=== PATIENT | male | born 1955 | race Caucasian/White ===

== ENCOUNTER → 2017-07-27 20:07 | Outpatient (CLI) | payer MEDICAID, SELFPAY | PROVIDERS: Family Provider Family Medicine; PCP Family Medicine; Visit Provider Family Medicine | DX: G47.33 Obstructive sleep apnea (adult) (pediatric) (principal) | CPT/HCPCS: 95810 ==

== ENCOUNTER → 2017-09-23 08:20 | Outpatient (CLI) | payer MEDICAID, SELFPAY ==
--- NOTE | 2017-09-23 08:25 | STE_ITS ---
Reason For Study: ABN. EKG Stress Results Protocol: Ricardo Protocol Maximum Predicted HR: 160 bpm Target HR: 136 bpm% Max imum Predicted HR: 85 % DurationHeart Rate Stage (mm:ss) (bpm) BPDos eComment BASELINE 56 143/82 0.2 ML DEFINITY STAGE 1 3:40 60 121/6610.00 STAGE 2 3:00 10 9 168/8220.00 STAGE 3 3:38 13 6 170/9630.000.2 ML DEFINITY REC OVERY 80 126/63 0.1 ML DEFINITY Stress Duration: 10:18 mm:ss Maximum Stress HR: 136 bpm Baseline Echocardiogram Findings The estimated ejection fraction is 65 %. Stress Echo Wall motion Data Resting WMIntermediate WMStress WM Resting Wall Motion Wall Motion Stress No regional wall motion No regional wall motion abnormalities noted. abnormalities noted. EKG Data Normal intervals are noted. The patient was titrated from 10 mcg to a maximun of 30 mcg of dobutamine during the stress. The maximum heart rate attained was 136 beats per minute. This was 85% of maximum predicted heart rate. During dobutamine infusion, there were no ST or T wave changes noted to suggest ischemia. No clinical angina was noted. Interpretation Summary The study was technically difficult. Contrast injection was performed. The estimated ejection fraction is 65 %. The patient was titrated from 10 mcg to a maximun of 30 mcg of dobutamine during the stress. Normal, adequate, dobutamine echocardiogram. Negative for ischemia by EKG and echocardiographic criteria. No anginal symptoms noted. Rare PAC noted. Rare PVC noted. Appropriate blood pressure response to dobutamine. Decreased sensitivity due to poor echo windows requiring Definity enhancement agent. Final LVEF of 75%. Decreased sensitivity due to baseline left bundle branch pattern. Recommend clinical correlation or alternative mode of testing if coronary ischemia is strongly suspected. Ordering Physician: Hunter Hameed Referring Physician: Hunter Hameed Performed By: Nuvia Keller RDCS, RVT
== END ==
PROVIDERS: Family Provider Family Medicine; PCP Family Medicine; Visit Provider Family Medicine
DX: I49.3 Ventricular premature depolarization (principal); R94.31 Abnormal electrocardiogram [ECG] [EKG]
CPT/HCPCS: 93017; 93350; Q9957; A4216; C8928

== ENCOUNTER 2017-11-23 07:15 | Day surgery (SDC) | payer MEDICAID, SELFPAY ==
[2017-11-20 09:09] VITALS: BMI 37.4
--- NOTE | 2017-11-25 07:19 | CL.IE_ITS ---
Patient: PHILIPPE SADLER Study Date: 11/23/2017 Performing: Shilo Kennedy MD : 1955 Age: 62 Gender: male PROCEDURES PERFORMED [id number] OF LOOP RECORDER INDICATIONS Syncope PROCEDURE DETAILS The patient was brought to the Catheterization Lab in the postabsorptive nonsedated state. Informed consent was obtained prior to the procedure. Local anesthetic was given subcutaneously to the left up per chest area with Lidocaine 2%. Incision was made to the left upper chest. ICM Reveal LINQ was inse rted into the pocket. Steri-strips applied to Lt chest area. The patient tolerated the procedure wel l. Estimated Blood Loss: 3 ml's IMPLANTED / EX-PLANTED DEVICES IMPLANTED DEVICE(S): ICM Reveal LINQ - Quirk Sander: [employer], Model # [id number] Serial # [id number] DEVICE PARAMETERS CONCLUSIONS / RECOMMENDATIONS Device Conclusions: Successful implantation of a patient activated loop recorder. Device Recommendations: Follow up with Primary Care Physician PROCEDURE MEDICATIONS Versed 1 mg IV Oxygen: 2 L/min via nasal cannula Antibiotic given in appropriate timeframe. Ancef 1 Gm IV @ 11/23/2017 08:21:39 Signed By Shilo Kennedy MD On 11/25/2017 07:18:42 Shilo Kennedy MD
== END 2017-11-23 09:52 | disposition home or self-care (01) ==
LOC: CLSP 07:16
PROVIDERS: Family Provider Family Medicine; PCP Family Medicine; Visit Provider Internal Medicine Cardiovascular Disease
DX: R55 Syncope and collapse (principal); I49.3 Ventricular premature depolarization; I44.7 Left bundle-branch block, unspecified; J44.9 Chronic obstructive pulmonary disease, unspecified; I10 Essential (primary) hypertension; E78.5 Hyperlipidemia, unspecified; R73.03 Prediabetes; M19.90 Unspecified osteoarthritis, unspecified site; G47.33 Obstructive sleep apnea (adult) (pediatric); F41.9 Anxiety disorder, unspecified; E66.9 Obesity, unspecified; F17.210 Nicotine dependence, cigarettes, uncomplicated; Z79.82 Long term (current) use of aspirin; Z79.899 Other long term (current) drug therapy; Z86.73 Personal history of transient ischemic attack (TIA), and cerebral infarction without residual deficits
CPT/HCPCS: 33282; 99152; J7040

== ENCOUNTER 2017-12-15 13:27 | Emergency (ER) | payer MEDICAID, SELFPAY ==
[2017-12-15 13:27] VITALS: BP 148/67; PULSE 79; RESP 16; TEMP 36.9; O2SAT 97; BMI 37.9
--- NOTE | 2017-12-15 14:38 | ED.VISSUMM ---
- ER Visit Summary Date of Service: 12/15/17 Chief Complaint: Left knee pain History of Present Illness: The patient is a [address] Hameed. He reports that he fell approximately 3 months ago and has had left knee pain since that time. He saw his primary care physician and had x-rays that are negative. The hope was that this would improve with time. Patient reports it is not getting any better. He has a sharp pain that is 2 out of 10 at rest and 8 out of 10 with walking. He reports the pain is worsened when standing from a chair or going up stairs. Physical Examination: Vitals: Stable. Afebrile. General: Well-nourished and well-developed. Head: Normocephalic atraumatic. Neck: Supple, no lymphadenopathy. No JVD. Nontender. Cardiovascular: Regular rate and rhythm. No murmurs. Respiratory: No respiratory distress. Clear to auscultation bilaterally. Abdominal: Soft, nontender, nondistended, normal bowel sounds. No guarding, rebound, or peritoneal signs. Back: Nontender. Extremities: Mild tenderness palpation over the medial side of his left knee. No pain or ligamentous instability with anterior posterior drawer or medial lateral stress. He does have a positive Pete with his foot rotated medially. Is a 2+ dorsalis pedis pulse Skin: Normal color, no rash. Neurologic: Alert and oriented ?3. Cranial nerves II through XII are intact. Normal strength and sensation. Psych: Normal affect. Emergency Department Course and Treatment: Had a prolonged discussion the patient that this could be meniscal in origin. It does not seem as though he has an unstable knee. An OARRS report was obtained which was negative. Treatment Plan: Patient will be discharged with Percocet and Colace. Instructed to follow-up with Dr. Spencer within a week for further evaluation. Return to the emergency department for any worsening symptoms. Disposition: To home in improved and stable condition. Impression: 1. Left knee pain, chronic. This note was generated with [employer] dictation software. It may contain incorrect words, spelling, and punctuation that were not noted in review of the chart prior to signing ED Disposition - Plan for ED Patient: Disposition: Home or Assisted Living Chief Complaint: Lower Extremity Injury Instructions: ED Meniscal Injury Knee Poss Prescriptions: Oxycodone HCl/Acetaminophen [Percocet 5/325] 1 tablet PO Q6H PRN PRN 3 Days #12 tablet PRN Reason: Pain Docusate Sodium [Colace] 100 mg PO DAILY #20 capsule Referrals: Myah Spencer DO [STAFF PHYSICIAN] - 1 Week
== END 2017-12-15 14:59 | disposition home or self-care (01) ==
PROVIDERS: Emergency Provider Emergency Medicine; Family Provider Family Medicine; PCP Family Medicine
DX: M25.562 Pain in left knee (principal); G89.29 Other chronic pain; Z72.0 Tobacco use; Z79.82 Long term (current) use of aspirin; Z79.899 Other long term (current) drug therapy; Z86.73 Personal history of transient ischemic attack (TIA), and cerebral infarction without residual deficits
CPT/HCPCS: 99282

== ENCOUNTER → 2017-12-22 09:19 | Outpatient (CLI) | payer MEDICAID, SELFPAY | PROVIDERS: Family Provider Family Medicine; PCP Family Medicine; Visit Provider Orthopaedic Surgery | DX: M25.562 Pain in left knee (principal) | CPT/HCPCS: 73564 ==

== ENCOUNTER → 2018-01-05 15:25 | Outpatient (CLI) | payer MEDICAID, SELFPAY ==
--- NOTE | 2018-01-05 15:28 | MRI_ITS ---
STUDY: MRI LEFT KNEE REASON FOR EXAM: Medial pain, fall 6-8 weeks ago. TECHNIQUE: Standardized fat and water weighted pulse sequences were obtained in all 3 orthogonal planes. COMPARISON: Radiographs 12/22/2017. FINDINGS: Normal medial meniscus. Normal hyaline cartilage of the medial femorotibial compartment. There is a small bone contusion of the medial femoral condyle near the origin of the medial collateral ligament (T2 axial image 13). There is a mild sprain of the proximal medial collateral ligament (T2 coronal image 17) and calcification in the proximal medial collateral ligament from remote injury (proton-density coronal image 18). Normal distal semimembranosus, gracilis and semitendinosus tendons. Normal lateral meniscus. Normal hyaline cartilage of the lateral femorotibial compartment. Normal lateral femoral condyle and tibial plateau. Normal proximal tibiofibular articulation. Normal lateral collateral (fibular) ligament. Normal popliteus tendon. Normal biceps femoris tendon. Normal anterior cruciate ligament (ACL). Normal posterior cruciate ligament (PCL). Normal congruent patellofemoral articulation. Normal hyaline cartilage of the patellofemoral compartment. Normal medial and lateral patellar retinaculum. Normal quadriceps tendon. There is an enthesophyte at the superior pole of the patella. Normal patellar tendon. Normal Hoffa's fat pad. There is no joint effusion. There is a small popliteal cyst (T2 sagittal images 4-7). The otherwise visualized osseous structures are unremarkable. MRI/Lower Ext Joint Only (Routine) IMPRESSION: Mild medial collateral ligament sprain. Small bone contusion of the medial femoral condyle. Small popliteal cyst. No demonstrated medial meniscal tear. Electronically Signed: Lance Avila MD at 7:39 EDT Tel , Service support ,
== END ==
PROVIDERS: Family Provider Family Medicine; PCP Family Medicine; Visit Provider Orthopaedic Surgery
DX: S83.242A Other tear of medial meniscus, current injury, left knee, initial encounter (principal); S83.412A Sprain of medial collateral ligament of left knee, initial encounter; X58.XXXA Exposure to other specified factors, initial encounter; Y93.9 Activity, unspecified; Y92.9 Unspecified place or not applicable; Y99.9 Unspecified external cause status
CPT/HCPCS: 73721

== ENCOUNTER 2018-01-08 09:59 | Day surgery (SDC) | payer MEDICAID, SELFPAY ==
[2018-01-08] VITALS (13 sets, daily range): BP systolic 137–161; BP diastolic 66–95; PULSE 60–71; RESP 16–18; TEMP 36.4–36.7; O2SAT 93–96; BMI 37.9
[2018-01-08] MEDS: Cefazolin 2 GM in 0.9% Normal Saline 100 ML IV (12:52)
--- NOTE | 2018-01-08 14:18 | CL.IE_ITS ---
Patient: PHILIPPE SADLER Study Date: 01/08/2018 Performing: Shilo Kennedy MD : 1955 Age: 62 Gender: male PROCEDURES PERFORMED [id number] PACER INSERT+DUAL LEADS INDICATIONS Atrioventricular (AV) block PROCEDURE DETAILS The patient was brought to the Catheterization Lab in the postabsorptive nonsedated state. Informed consent was obtained prior to the procedure. Local anesthetic was given subcutaneously to the left up per chest area with Lidocaine 2%. Incision was made to the left upper chest. Access was achieved and a guidewire was advanced into the left subclavian vein. PPM ventricular lead was inserted / positione d to right ventricular apex. PPM ventricular lead testing performed. PPM ventricular lead testing per formed. The sheath was then removed. PPM atrial lead was inserted / positioned to the right atrial ap pendage. PPM atrial lead testing performed. The sheath was then removed. The Ventricular PM lead sutu red in place with 3-0 Silk. The Atrial lead sutured in place with 3-0 Silk. Device pocket was irrigat ed with antibiotic (Ancef). PPM generator was attached to the lead(s) and inserted into the pocket. S ubcutaneous closure was completed with 3-0 Vicryl. Skin closure was completed with 4-0 Vicryl. The p atient tolerated the procedure well. Estimated Blood Loss: 10 ml's IMPLANTED / EX-PLANTED DEVICES IMPLANTED DEVICE(S): PPM Ventricular lead - [employer]: [employer], Model # Ingevity MRI 7741 , Serial # [id number] PPM Atrial lead - [employer]: [employer], Model # Ingevity MRI 7740 , Serial # [id number] PPM Generator - [employer]: [employer], Model # Essentio MRI L111 , Serial # [id number] DEVICE PARAMETERS ATRIAL LEAD PARAMETERS: P wave- 6.6 (mV) Current- 1.1 (mA) threshold- 0.7 (V) impedence- 674 (OHMS) VENTRICULAR LEAD PARAMETERS: R wave- 12.6 (mV) Current- 0.4 (mA) threshold- 0.4 (V) impedence- 1022 (OHMS) DEVICE PARAMETERS: Mode- DDD Lower rate- 60 Upper rate- 140 CONCLUSIONS / RECOMMENDATIONS Device Conclusions: Successful implantation of a dual chamber pacemaker Device Recommendations: Follow up with Primary Care Physician PROCEDURE MEDICATIONS Versed 1 mg IV Fentanyl 50 mcg IV Versed 1 mg IV Fentanyl 25 mcg IV Oxygen: 2 L/min via nasal cannula Antibiotic given in appropriate timeframe. Ancef 2 Gm IV @ 01/08/2018 12:52:31 Signed By Shilo Kennedy MD On 01/08/2018 14:17:42 Shilo Kennedy MD
[2018-01-08] MEDS: Atorvastatin Calcium 40 MG Tablet PO (21:32)
[2018-01-08] MEDS: Acetaminophen 325 MG Tablet 650 MG PO (22:59)
[2018-01-09 03:14] VITALS: PULSE 60
[2018-01-09 03:30] VITALS: BP 131/78; PULSE 60; RESP 18; TEMP 36.7; O2SAT 95
--- NOTE | 2018-01-09 04:40 | RAD_ITS ---
STUDY: X-RAY CHEST REASON FOR EXAM: Male, 62 years old. Pacemaker placement TECHNIQUE: AP and lateral views of the chest. COMPARISON: 06/12/2016 FINDINGS: Interval placement of dual-lead pacer via left subclavian approach with catheter tip over the right atrium and right ventricle. There are superimposed monitor leads. There is no demonstrated pneumothorax. There is no demonstrated pleural abnormality. Normal size heart. Normal mediastinum and corinna. Normal visualized pulmonary arteries. There is atherosclerotic calcification of the aortic arch with tortuosity. There are diffuse degenerative changes of the visualized thoracic spine. Normal visualized ribs, clavicles, and shoulders. There is no demonstrated abnormality of the visualized soft tissue structures of the upper abdomen. RAD/Chest PA and Lateral IMPRESSION: Pacemaker placement appears in good position. There is no demonstrated pneumothorax. Electronically Signed: Katie Mckeon MD at 6:41 EDT , Service support ,
[2018-01-09 06:59] VITALS: PULSE 60
[2018-01-09] MEDS: Aspirin E.C. 81 MG Tablet PO (08:48)
[2018-01-09 10:12] VITALS: BP 154/80; PULSE 60; RESP 20; TEMP 36.8; O2SAT 95
--- NOTE | 2018-01-09 10:58 | PCM.PN.CARD ---
Subjectve: Patient seen and evaluated Objective: Vital Signs Temp Pulse Resp BP Pulse Ox 98.3 F 60 20 H 154/80 H 95 01/09/18 10:12 01/09/18 10:12 01/09/18 10:12 01/09/18 10:12 01/09/18 10:12 Oxygen Delivery Method Room Air Weight: 235 lb Body Mass Index (BMI) 37.9 Finger Stick Blood Glucose 84 Intake and Output for Last 24 Hours 01/07/18 01/08/18 01/09/18 23:59 23:59 23:59 Intake Total 720 / 720 120 / 120 Output Total 450 / 450 Balance 270 / 270 120 / 120 General: Awake, Alert, Oriented x 3 HEENT: PERRL, EOMI, Sclera Non Icteric Neck: Supple, Good ROM, No Lymph Node Enlargement Lungs: Clear to auscultation Cardiovascular: Regular Rhythm, Normal S1, Normal S2, No Murmurs, No Rubs, No Gallops Vascular: No Carotid Bruits, Normal Femoral Pulses, Normal Radial Pulses, Normal Dorsalis Pedal Pulse, Normal Posterior Tibial Pulses Abdomen: Bowel Sounds Present, Soft, Non Tender, No HSM, No Organomegaly Extremities: No Cyanosis, No Clubbing, No edema Neurological: No Focal Motor or Sensory Deficit Rhythm: EKG: ECHO: Stress Test: Cardiac Cath: PCI: CT Surgery: Holter monitor: EPS: PPM: CXR: Chest CT Scan: Medical Necessity - Tobacco Use Smoking Status: Current some day smoker Assessment/Plan 1. Status post pacemaker implantation Patient underwent permanent pacemaker implantation with a dual-chamber without any apparent complications. Pacemaker check did not reveal any significant abnormalities. Plan will be to discharge patient and follow him up as an outpatient.
[2018-01-09 10:59] VITALS: PULSE 60
--- NOTE | 2018-01-09 11:02 | PCM.DC.PACE ---
Discharge Diet: No Restrictions Discharge Activity: May Not Drive May resume sexual activity in: 2 weeks Call your doctor if your incision/area has: Continuous Slow Oozing, Sudden Increased Bleeding, Increased Pain/ Swelling, Increased Redness, Foul Smelling Discharge, Swelling at the incision site Call your doctor if you observe: Fever of 101 or Higher, Shortness of breath, Dizziness, Fainting spells, Swelling in the ankles, Chest pain, Prolonged hiccoughing, Increased palpitations (irregular heartbeat) Change Dressing in (Days):: 3 Remove Dressing in (days):: 3 Cleanse incision/area with: Do not get Incision Wet, Keep Dressing Clean & Dry Additional Dressing/Incision Instructions:: When dressing is removed, wash and dry incision. Keep covered with a light bandage if it is rubbing against your clothing. Do not cover the incision with an airtight bandage. Change the bandage daily. Do not remove steri strips. The strips will fall off on their own. Additional Instructions: Signs and Symptoms to Report to Your Doctor at Once - call your doctor's office or Doctor's Registry ([phone]) Call 911 or go to the nearest Emergency Department if you feel you need urgent care. *Infection (fever, increased redness or swelling at the incision site, drainage from the incision increased pain at the pacemaker site) *Shortness of breath *Dizziness *Fainting spells *Swelling in the ankles *Chest pain *Prolonged hiccoughing *Increased palpitaitons (irregular heartbeat) Medications: Take your pain medication as directed. Refer to your discharge instruction sheet for a list of medications you are to take. Allergies/Adverse Reactions: Allergies codeine Adverse Reaction (Verified 12/15/17 13:29) Nausea latex Adverse Reaction (Verified 12/15/17 13:29) Rash Medications to take at Discharge Aspirin 81 mg PO QODAY 11/20/17 Ventolin Hfa 2 puff PO Q2H PRN PRN 11/20/17 Atorvastatin Calcium [Lipitor] 40 mg PO QHS 01/08/18 Primary Care Physician: Hunter Hameed MD [Primary Care Provider] - Test Results: Test results from this visit will be discussed in further detail at your follow-up appointment, if applicable. Please Follow Up With: [facility] 01/15 at 10 am
--- NOTE | 2018-01-09 11:05 | DCINST_ITS ---
Discharge Diet: No Restrictions Discharge Activity: May Not Drive May resume sexual activity in: 2 weeks Call your doctor if your incision/area has: Continuous Slow Oozing, Sudden Increased Bleeding, Increased Pain/ Swelling, Increased Redness, Foul Smelling Discharge, Swelling at the incision site Call your doctor if you observe: Fever of 101 or Higher, Shortness of breath, Dizziness, Fainting spells, Swelling in the ankles, Chest pain, Prolonged hiccoughing, Increased palpitations (irregular heartbeat) Change Dressing in (Days):: 3 Remove Dressing in (days):: 3 Cleanse incision/area with: Do not get Incision Wet, Keep Dressing Clean & Dry Additional Dressing/Incision Instructions:: When dressing is removed, wash and dry incision. Keep covered with a light bandage if it is rubbing against your clothing. Do not cover the incision with an airtight bandage. Change the bandage daily. Do not remove steri strips. The strips will fall off on their own. Additional Instructions: Signs and Symptoms to Report to Your Doctor at Once - call your doctor's office or Doctor's Registry ([phone]) Call 911 or go to the nearest Emergency Department if you feel you need urgent care. *Infection (fever, increased redness or swelling at the incision site, drainage from the incision increased pain at the pacemaker site) *Shortness of breath *Dizziness *Fainting spells *Swelling in the ankles *Chest pain *Prolonged hiccoughing *Increased palpitaitons (irregular heartbeat) Medications: Take your pain medication as directed. Refer to your discharge instruction sheet for a list of medications you are to take. Allergies/Adverse Reactions: Allergies codeine Adverse Reaction (Verified 12/15/17 13:29) Nausea latex Adverse Reaction (Verified 12/15/17 13:29) Rash Medications to take at Discharge Aspirin 81 mg PO QODAY 11/20/17 Ventolin Hfa 2 puff PO Q2H PRN PRN 11/20/17 Atorvastatin Calcium [Lipitor] 40 mg PO QHS 01/08/18 Primary Care Physician: Hunter Hameed MD [Primary Care Provider] - Test Results: Test results from this visit will be discussed in further detail at your follow- up appointment, if applicable. Please Follow Up With: [facility] 01/15 at 10 am
== END 2018-01-09 11:04 | disposition home or self-care (01) ==
LOC: CLSP 10:00 → PCU 14:35
PROVIDERS: Family Provider Family Medicine; PCP Family Medicine; Visit Provider Internal Medicine Cardiovascular Disease
DX: R55 Syncope and collapse (principal); I44.7 Left bundle-branch block, unspecified; R00.2 Palpitations; I10 Essential (primary) hypertension; E78.5 Hyperlipidemia, unspecified; G47.33 Obstructive sleep apnea (adult) (pediatric); E66.9 Obesity, unspecified; Z79.82 Long term (current) use of aspirin; Z79.899 Other long term (current) drug therapy; F17.200 Nicotine dependence, unspecified, uncomplicated
CPT/HCPCS: 33208; 71046; 99152; 99153; J7040; J7050; C1894

== ENCOUNTER 2018-03-01 06:54 | Day surgery (SDC) | payer MEDICAID, SELFPAY ==
--- NOTE | 2018-03-04 10:50 | CL.IE_ITS ---
Patient: PHILIPPE SADLER Study Date: 03/01/2018 Performing: Shilo Kennedy MD : 1955 Age: 62 Gender: male PROCEDURES PERFORMED [id number] OF LOOP RECORDER INDICATIONS Removal of Loop device PROCEDURE DETAILS The patient was brought to the Catheterization Lab in the postabsorptive nonsedated state. Infor med consent was obtained prior to the procedure. Local anesthetic was given subcutaneously to the lef t upper chest area with Lidocaine 2%. Incision was made to the left upper chest. ICM Reveal LINQ was removed. Skin closure was completed with 4-0 Vicryl. Steri-strips applied to Lt chest area. The maría ent tolerated the procedure well. Estimated Blood Loss: < 10 mls IMPLANTED / EX-PLANTED DEVICES DEVICE PARAMETERS CONCLUSIONS / RECOMMENDATIONS Device Conclusions: Successful removal of a patient activated loop recorder. Device Recommendations: Follow up with Primary Care Physician PROCEDURE MEDICATIONS Versed 1 mg IV Oxygen: 2 L/min via nasal cannula Antibiotic given in appropriate timeframe. Ancef 2 Gm IV @ 03/01/2018 09:01:22 Signed By Shilo Knenedy MD On 03/04/2018 10:49:38 Shilo Kennedy MD
== END 2018-03-01 10:25 | disposition home or self-care (01) ==
LOC: CLSP 06:54
PROVIDERS: Family Provider Family Medicine; PCP Family Medicine; Referring Provider Internal Medicine Cardiovascular Disease; Visit Provider Internal Medicine Cardiovascular Disease
DX: I49.5 Sick sinus syndrome (principal); I44.39 Other atrioventricular block; I44.7 Left bundle-branch block, unspecified; I49.3 Ventricular premature depolarization; R55 Syncope and collapse; I25.10 Atherosclerotic heart disease of native coronary artery without angina pectoris; J44.9 Chronic obstructive pulmonary disease, unspecified; I10 Essential (primary) hypertension; E78.5 Hyperlipidemia, unspecified; M19.011 Primary osteoarthritis, right shoulder; R73.03 Prediabetes; F41.9 Anxiety disorder, unspecified; E66.9 Obesity, unspecified; F17.210 Nicotine dependence, cigarettes, uncomplicated; Z79.82 Long term (current) use of aspirin; Z79.899 Other long term (current) drug therapy; Z86.73 Personal history of transient ischemic attack (TIA), and cerebral infarction without residual deficits; Z95.0 Presence of cardiac pacemaker
CPT/HCPCS: 33284; 99152; 99153; J7040

== ENCOUNTER → 2018-10-01 13:57 | Outpatient (CLI) | payer MEDICARE, MEDICAID, SELFPAY ==
[2018-09-01 11:15] VITALS: BMI 40.5
--- NOTE | 2018-10-01 14:00 | ECHOD_ITS ---
Reason For Study: AORTIC STENOSIS (nonrheumatic) Procedure This was a 2D Doppler, Color Flow transthoracic echocardiogram. Exam performed in department. Left Ventricle Normal size and thickness. Left ventricular systolic function is normal. The estimated ejection fraction is 50-55 %. Normal diastology for age. Mild anteroseptal hypokinesis. Right Ventricle Normal RV size. Normal systolic function. Atria Normal left atrium. Normal right atrium. No doppler evidence for ASD. Mitral Valve There is no mitral valve stenosis. No mitral valve insufficiency. Tricuspid Valve There is no tricuspid stenosis. Trivial tricuspid valve insufficiency. Unable to estimate RV systolic pressure due to insufficient tricuspid regurgitant envelope. Aortic Valve Trisinus/trileaflet aortic valve. Mild diffuse aortic valve thickening. Mild aortic stenosis. No aortic valve insufficiency. Pulmonic Valve There is no pulmonic valvular stenosis. No pulmonic valve insufficiency. Great Vessels Normal aortic root. Pericardium/Pleural No pericardial effusion. MMode/2D Measurements & Calculations LVIDd: 4.9 cm IVSd: 1.1 cm LVOT diam: 2.1 cm LVIDs: 4.0 cm LVPWd: 1.1 cm LVOT area: 3.5 cm2 RVDd: 3.9 cm FS: 18.1 % Ao root diam: 3.6 cm LAV(MOD-bp): 51.7 ml LA A4 area: 18.0 cm2 LAV(MOD-bp) Indexed: 24.0 ml/m2 LAV(MOD-sp2): 51.3 ml LAV(MOD-sp4): 51.1 ml LA dimension(2D): 3.1 cm RA A4 area: 14.8 cm2 Time Measurements MV dec time: 0.24 sec Doppler Measurements & Calculations MV E max mahesh: 74.1 cm/sec Lat Peak E' Mahesh: 9.1 cm/sec Med Peak E' Mahesh: 5.3 cm/sec MV A max mahesh: 98.9 cm/sec E/E' lat: 8.1 E/E' med: 13.9 MV E/A: 0.75 Ao V2 max: 199.3 cm/sec LV V1 max: 131.9 cm/sec SV(LVOT): 86.1 ml Ao max P.9 mmHg LV V1 max P.0 mmHg Ao V2 mean: 142.6 cm/sec LV V1 mean P.0 mmHg Ao mean P.8 mmHg LV V1 mean: 96.5 cm/sec Ao V2 VTI: 37.2 cm LV V1 VTI: 24.5 cm ALFREDITO(I,D): 2.3 cm2 ALFREDITO(V,D): 2.3 cm2 PA V2 max: 149.7 cm/sec TR max mahesh: 206.6 cm/sec PA V2 mean: 94.2 cm/sec TR max P.1 mmHg PA V2 VTI: 25.0 cm Interpretation Summary Left ventricular systolic function is normal. The estimated ejection fraction is 50-55 %. Normal diastology for age. Mild diffuse aortic valve thickening. Mild aortic stenosis. Mild anteroseptal hypokinesis Ordering Physician: Devi Pal Referring Physician: Ambrose Hameed Performed By: Maritza Mckinney, SMILEY, RVT
== END ==
PROVIDERS: Family Provider Family Medicine; PCP Family Medicine; Referring Provider Specialist; Visit Provider Specialist
DX: I35.0 Nonrheumatic aortic (valve) stenosis (principal)
CPT/HCPCS: 93306

== ENCOUNTER 2018-10-08 14:17 | Emergency (ER) | payer MEDICARE, MEDICAID, SELFPAY ==
[2018-09-01 11:15] VITALS: BMI 40.5
[2018-10-08 14:19] VITALS: BP 157/79; PULSE 95; RESP 17; TEMP 36.9; O2SAT 94; BMI 38.7
[2018-10-08] MEDS: predniSONE 20 MG Tablet 60 MG PO (14:58)
--- NOTE | 2018-10-08 15:02 | RAD_ITS ---
STUDY: X-RAY CHEST REASON FOR EXAM: Male, 63 years old. Difficulty breathing. TECHNIQUE: PA and lateral views of the chest. COMPARISON: Comparison is made with prior study dated January 09, 2018. FINDINGS: The lungs are clear and expanded. There is no demonstrated pleural abnormality. Normal size heart. A left-sided double-lumen pacemaker is seen. Normal mediastinum and corinna. Normal visualized pulmonary arteries. There is atherosclerotic calcification of the aortic arch with tortuosity. There are mild degenerative changes of the visualized thoracic spine. Normal visualized ribs, clavicles, and shoulders. There is no demonstrated abnormality of the visualized soft tissue structures of the upper abdomen. RAD/Chest PA and Lateral IMPRESSION: No acute abnormality is seen. Electronically Signed: Star Sullivan, at 15:34 EDT , Service support ,
--- NOTE | 2018-10-08 15:41 | ED.VISSUMM ---
- ER Visit Summary Date of Service: 10/08/18 Chief Complaint: [Cough and shortness of breath] History of Present Illness: The patient is a 63 M [presents to the emergency department with 2 and half week history of cough and increasing shortness of breath. Patient states that times he is bringing up some brown to yellow sputum. He denies any fevers. Patient occasionally has some mild discomfort in his chest with cough only. He denies recent travel or surgery. He denies any hemoptysis. Patient has had prior history of CVA, hypertension, high cholesterol, COPD, and sick sinus syndrome.] Physical Examination: [HEENT-PERRLA, EOMI. Cranial nerves II through XII grossly intact. TMs clear. Mucous membranes moist. No adenopathy. Cardiovascular-regular rate and rhythm without murmur or ectopy Lungs-good aeration bilaterally. Patient has some coarse rhonchi throughout. Patient has expiratory wheezes throughout. No significant tachypnea or accessory muscle use. Abdomen-normoactive bowel sounds, soft, nontender, no rebound or rigidity, no peritoneal signs. Extremities-intact ?4, normal range of motion, normal pulses, atraumatic] Test Results: [Chest x-ray showed nothing acute.] Emergency Department Course and Treatment: [Given a DuoNeb aerosol and started on prednisone and doxycycline. Treatment Plan: [Patient will be started on doxycycline and prednisone and will dispense an albuterol MDI for home. Patient advised to follow-up with primary care physician in 5 to 7 days. Patient advised to return if increasing shortness of breath or condition should worsen anyway.] Disposition: [Discharged home stable condition] Impression: [COPD exacerbation] This note was generated with [email or web address] dictation software. It may contain incorrect words, spelling, and punctuation that were not noted in review of the chart prior to signing ED Disposition - Plan for ED Patient: Referrals: Hunter Hameed MD [Primary Care Provider] -
--- NOTE | 2018-10-08 15:43 | ED.DEP ---
ED Disposition - Plan for ED Patient: Instructions: ED COPD Flare Prescriptions: Benzonatate [Tessalon Perle] 200 mg PO TID PRN PRN #20 cap PRN Reason: Cough Doxycycline 100 mg PO BID #20 cap Prednisone [Deltasone] 20 mg PO BID #10 tab Referrals: Hunter Hameed MD [Primary Care Provider] - 5-7 Days
[2018-10-08] MEDS: Doxycycline 100 MG CAPSULE PO (15:52)
[2018-10-08 15:53] VITALS: RESP 18
== END 2018-10-08 15:54 | disposition home or self-care (01) ==
PROVIDERS: Emergency Provider Emergency Medicine; Family Provider Family Medicine; PCP Family Medicine
DX: J44.1 Chronic obstructive pulmonary disease with (acute) exacerbation (principal); I49.5 Sick sinus syndrome; I10 Essential (primary) hypertension; E78.00 Pure hypercholesterolemia, unspecified; K21.9 Gastro-esophageal reflux disease without esophagitis; F41.9 Anxiety disorder, unspecified; Z79.82 Long term (current) use of aspirin; Z79.899 Other long term (current) drug therapy; Z87.891 Personal history of nicotine dependence; Z86.73 Personal history of transient ischemic attack (TIA), and cerebral infarction without residual deficits
CPT/HCPCS: 71046; 99283; A4216

== ENCOUNTER 2018-11-15 15:22 | Emergency (ER) | payer MEDICARE, MEDICAID, SELFPAY ==
[2018-11-15 15:23] VITALS: BP 191/70; PULSE 74; RESP 15; TEMP 36.4; O2SAT 96; BMI 38.7
--- NOTE | 2018-11-15 16:56 | RAD_ITS ---
STUDY: X-RAY CHEST REASON FOR EXAM: Male, 63 years old. Chest pain TECHNIQUE: Frontal view of the chest COMPARISON: X-ray chest October 08, 2018 FINDINGS: Left chest pacemaker is present. The lungs are clear. There are no pleural effusions. There is no pneumothorax. The heart is normal in size. The visualized osseous structures are within normal limits. RAD/Chest 1 View IMPRESSION: No acute thoracic pathology. Electronically Signed: Jermaine Kumar, at 17:59 EDT Tel , Service support ,
--- NOTE | 2018-11-15 16:56 | EKG12_ITS ---
Test Reason : WEAKNESS Blood Pressure : / mmHG Vent. Rate : 060 BPM Atrial Rate : 060 BPM P-R Int : 264 ms QRS Dur : 154 ms QT Int : 478 ms P-R-T Axes : 024 -11 174 degrees QTc Int : 478 ms Poor data quality, interpretation may be adversely affected Atrial-paced rhythm with prolonged AV conduction Left bundle branch block Abnormal ECG Confirmed by LEIGH LALA, STEPHAN ([id number]), order editor VALERIE LATIF ([id number]) on 11/17/2018 1:40:11 PM Referred By: ERICA Confirmed By:STEPHAN ABRAHAM MD
--- NOTE | 2018-11-15 16:56 | CT_ITS ---
STUDY: CTA HEAD AND NECK WITH CONTRAST REASON FOR EXAM: Male, 63 years old. Vision changes and weakness RADIATION DOSAGE (If Supplied By Facility): CTDIvol = ( 29.20 ) mGy, DLP = ( 1633.87 ) mGycm TECHNIQUE: CT angiography was performed with a multi-detector CT scanner. Data acquisition was obtained from the skull base through the vertex following intravenous administration of 100mL IV Isovue 370. MIP images were reconstructed from the axial data set. Post-processing of the angiographic images was performed, with multiplanar reformation and 3D reconstruction. Individualized dose optimization techniques were used for this CT. COMPARISON: MRA 06/12/2016 FINDINGS: Intracranial ICA calcifications. Otherwise: Normal bilateral petrous carotid arteries. Normal right cavernous carotid artery with a normal supraclinoid bifurcation. Normal left cavernous carotid artery with a normal supraclinoid bifurcation. Normal right A1 segments of the anterior cerebral artery. Normal left A1 segments of the anterior cerebral artery. Normal intact anterior communicating artery (ACOM). Normal bilateral A2 segments of the anterior cerebral arteries. Normal right M1 and M2 segments of the middle cerebral arteries, with a normal M1 bifurcation. Normal left M1 and M2 segments of the middle cerebral arteries, with a normal M1 bifurcation. Normal right posterior communicating artery (PCOM). Normal left posterior communicating artery (PCOM). Normal bilateral vertebral arteries. Normal basilar artery with a normal basilar bifurcation. The visualized bilateral superior cerebellar (SCA) arteries are normal. Normal bilateral P1, P2 and visualized P3 segments of the posterior cerebral arteries. There is no demonstrated aneurysm of the [place]. AORTIC ARCH: Bovine aortic arch. Normal origins of the brachiocephalic, left common carotid, and left subclavian arteries. RIGHT CAROTID ARTERIES: Normal right common carotid artery (CCA). Postoperative changes at the level of the carotid bulb. Extensive eccentric soft plaque in the carotid bulb extending to the proximal ICA. An associated stenosis of approximately 70% is noted with residual lumen diameter of 2 mm and poststenotic diameter of 6 mm. Normal origin of the right internal carotid (ICA) artery without a hemodynamically significant stenosis. Normal visualized cervical portion of the right internal carotid artery. Normal origin of the right external carotid artery (ECA). LEFT CAROTID ARTERIES: Normal left common carotid artery (CCA). Mild eccentric calcified bulb plaque without underlying stenosis. Normal origin of the left internal carotid (ICA) artery without a hemodynamically significant stenosis. Normal visualized cervical portion of the left internal carotid artery. Normal origin of the left external carotid artery (ECA). VERTEBRAL ARTERIES: Normal bilateral vertebral arteries. CT/CTA Head AND Neck W/ Contrast IMPRESSION: No CTA evidence of significant intracranial arterial pathology. Extensive eccentric soft plaque in the right carotid bulb and proximal ICA with an associated 70% stenosis. Electronically Signed: Bacilio Espinoza MD at 19:07 EDT Tel , Service support ,
--- NOTE | 2018-11-15 16:58 | ED.DCSUM_ITS ---
- ER Visit Summary Date of Service: 11/15/18 Chief Complaint: Mini stroke History of Present Illness: The patient is a 63 M with a possible mini stroke. His symptoms started suddenly at 2:30 PM today when he was driving. Symptoms lasted about 5 to 10 minutes. He felt he was cross eyed. Since then, his symptoms have resolved but he feels tired. He sees occasional black and white floaters in his left eye. Denies any other vision changes. Denies facial droop or speech changes. Denies weakness or numbness. He has a history of stroke and takes aspirin. He had left-sided numbness at that time, but he said the symptoms have resolved. He also reports a history of carotid endarterectomy 2 years ago. Physical Examination: Blood pressure 191/70. Otherwise vitals unremarkable. Alert and oriented. No acute distress. Cranial nerves grossly intact. Normal strength and sensation. NIH stroke scale is 0. Heart regular rate and rhythm. Lungs clear. Skin appears normal. Test Results: EKG, chest x-ray, labs, CT brain and CTA head and neck pending. Emergency Department Course and Treatment: It sounds like the patient had a TIA. He is not currently having any symptoms except for floaters at this time. He will need a stroke work-up and admission. Results are pending. Will monitor. EKG paced at a rate of 60. CBC, BMP, coags, troponin unremarkable. Chest x-ray unremarkable. CT brain unremarkable. CTA of the neck showed a right carotid and proximal ICA 70% stenosis. I am concerned that the patient is having symptoms of a stroke. I recommended admission. I suggested a facility with vascular surgery. Patient is known to Dr. Scott. Patient says he cannot be admitted tonight he has to take care of personal issues. Patient will be discharged AGAINST MEDICAL ADVICE. He was given a copy of his information should he want to follow-up at [facility]. Blood pressure is improved on reevaluation in the 130s. Patient is alert and oriented. Capable of making this decision. Free from outside influence. Treatment Plan: As above Disposition: AGAINST MEDICAL ADVICE Impression: 1. Dizziness 2. Right carotid stenosis This note was generated with [employer] software. It may contain incorrect words, spelling, and punctuation that were not noted in review of the chart prior to signing ED Disposition - Plan for ED Patient: Referrals: Hunter Hameed MD [Primary Care Provider] -
[2018-11-15 17:15] LABS: Absolute Neutrophil Count 5.9 X10^3/uL (2.0-7.7); Basophil# 0.01 X10^3/uL; Basophil% 0.1 % (0-1); Eosinophil# 0.19 X10^3/uL; Eosinophils% 2.1 % (0-5); Hematocrit 46.3 % (40-54); Hemoglobin 15.4 g/dL (13.0-16.5); Lymphocyte % 21.3 % (19-41); Mean Corp Hgb Conc 33.3 g/dL (32-36); Mean Corpuscular Hgb 29.5 pg (27.0-32.0); Mean Corpuscular Volume 88.7 fL (80-94); Mean Platelet Vol. 9.5 fl (6.2-12.0); Monocyte# 0.95 X10^3/uL; Monocyte% 10.6 % (0-10); NRBC Flagged by Analyzer 0 % (0-5); Neutrophil # 5.85 X10^3/uL (2.7-7.7); Neutrophil % 65.5 % (47-70); Platelet Count 229 K/mm3 (150-450); RBC Distribution Width CV 13.4 % (11.6-14.6); RBC Distribution Width SD 43.8 fl (35.1-43.9); Red Blood Count 5.22 M/mm3 (4.6-6.2); White Blood Count 8.9 K/mm3 (4.4-11.0)
[2018-11-15 17:22] LABS: International Normalized Ratio 1.1; Partial Thromboplast Time 28.2 Seconds (24.1-36.2); Prothrombin Time (Protime)PT. 13.9 SECONDS (11.7-14.9)
[2018-11-15 17:34] LABS: Anion Gap 7 (5-15); BUN 10 mg/dL (7-18); BUN/Creat Ratio 10.4 RATIO (10-20); Calcium,Total 8.4 mg/dL (8.5-10.1); Chloride 106 mmol/L (98-107); Creatinine, Serum 0.96 mg/dL (0.70-1.30); EST Glomerular Filtration Rate 85 mL/min (>60); Est Glom Filt Rate - Afr Amer 102 mL/min (>60); Estimated Creatinine Clearance 72.92 ml/min; Glucose 139 mg/dL (74-106); Potassium 3.7 mmol/L (3.5-5.1); Sodium Level 143 mmol/L (136-145)
[2018-11-15 17:40] VITALS: BP 141/76; PULSE 63; RESP 18
--- NOTE | 2018-11-15 17:40 | ED.RN ---
dr. barraza discontinues nih. only complete if change in patient status
--- NOTE | 2018-11-15 20:28 | ED.DEP ---
ED Disposition - Plan for ED Patient: Instructions: Carotid Artery Problems: Surgery for TIAs Referrals: Hunter Hameed MD [Primary Care Provider] -
[2018-11-15 20:48] VITALS: RESP 18; O2SAT 97
[2018-11-15 20:50] VITALS: RESP 18
[2018-11-16 07:46] LABS: Bedside Glucose 146 mg/dL (70-110)
== END 2018-11-15 20:50 | disposition home or self-care (01) ==
LOC: ED 17:16
PROVIDERS: Emergency Provider Emergency Medicine; Family Provider Family Medicine; PCP Family Medicine
DX: I65.21 Occlusion and stenosis of right carotid artery (principal); R42 Dizziness and giddiness; I10 Essential (primary) hypertension; Z72.0 Tobacco use; Z79.82 Long term (current) use of aspirin; Z79.899 Other long term (current) drug therapy; Z86.73 Personal history of transient ischemic attack (TIA), and cerebral infarction without residual deficits
CPT/HCPCS: 70496; 70498; 71045; 80048; 82962; 84484; 85025; 85610; 85730; 93005; 99284; Q9967; A4216

== ENCOUNTER 2019-01-31 14:12 | Emergency (ER) | payer MEDICARE, MEDICAID, SELFPAY ==
[2018-12-15 14:07] VITALS: BMI 40.3
[2019-01-31 14:14] VITALS: BP 162/79; PULSE 61; RESP 16; TEMP 36.4; O2SAT 96; BMI 39.5
[2019-01-31 14:24] VITALS: RESP 18
--- NOTE | 2019-01-31 15:06 | ED.VIS.GEN ---
History of Present Illness Chief Complaint: GI Bleed Informant: Patient Onset: Days - 3 Narrative: Right red blood per stools past 3 days one each day last time 4 hours ago. No lightheaded symptoms. Takes baby aspirin. No fevers. No abdominal pain. Colonoscopy [address] Olson with 3 polypectomies. States he is due for another one. No exertional dyspnea or exertional lightheaded symptoms or any chest pains. States pacemaker history due to symptomatic bradycardia. Prior similar symptoms: No Past Medical History - Allergies and Home Meds Allergies/Adverse Reactions: Allergies codeine Adverse Reaction (Verified 01/31/19 14:14) Nausea Primary Care Physician: Hunter Hameed MD [Primary Care Provider] - Smoking Status: Current every day smoker - Family History Maternal Family History: Family History (Last Reviewed 12/15/18 @ 14:48 by Blas Pal MD) Mother Heart disease Pacemaker Father Cancer Family History: Reports: Heart Disease Review of Systems General: Denies: Chills, Fever, Sweats Eyes: Denies: Visual changes - bilaterally, Diplopia ENT: Denies: Rhinorrhea, Sore throat Cardiovascular: Denies: Chest pain, Palpitations Respiratory: Denies: Dyspnea, Cough, Dyspnea on exertion Gastrointestinal: Reports: Hematochezia. Denies: Abdominal pain, Nausea, Vomiting, Diarrhea, Melena Genitourinary: Denies: Dysuria, Hematuria, Frequency Musculoskeletal: Denies: Back pain, Extremity Pain Skin: Denies: Rash, Wounds Neurological: Denies: Headache, Weakness, Numbness Physical Exam Vital Signs/Narrative: Vital Signs Temp Pulse Resp BP Pulse Ox 01/31/19 14:24 18 01/31/19 14:14 97.6 F L 61 16 162/79 H 96 Inital Vital Signs reviewed: Yes General: Well nourished, Well developed, No Acute Distress Head: Normocephalic, Atraumatic Eyes: Perrl, EOMI. Negative for: Pale conjunctiva ENT: Moist mucous membranes, No rhinorrhea Neck: Supple, Nontender Cardiovascular: Regular rate, Regular rhythm, No murmurs Respiratory: No distress, CTA bilaterally, Chest nontender Abdomen: Soft, Nontender, Nondistended, Normal bowel sounds Rectal: Nontender, - - No hemorrhoids, no fissures, digital rectal examination, no gross bleeding, guaiac pending. Back: Nontender, Normal Inspection Extremities: Nontender, No edema Skin: Normal color, No rash Neurological: Alert, Oriented x3, Cranial nerves II-XII grossly intact, Normal Strength, Normal Sensation Psychological: Normal affect, Normal Mood Diagnostic/Tx/Re-eval Abnormal Lab Results 01/31/19 01/31/19 01/31/19 15:24 15:24 15:24 WBC 9.2 RBC 5.40 Hgb 15.9 Hct 48.4 MCV 89.6 MCH 29.4 MCHC 32.9 RDW Std Deviation 43.9 RDW Coeff of Julito 13.5 Plt Count 258 MPV 9.4 Immature Gran % (Auto) 0.500 Neut % (Auto) 63.9 Lymph % (Auto) 23.4 [place] % (Auto) 9.6 Eos % (Auto) 2.4 Baso % (Auto) 0.2 Absolute Neuts (auto) 5.8 Absolute Lymphs (auto) 2.14 Nucleated RBC % 0 PT 14.2 INR 1.1 APTT 28.4 Sodium 140 Potassium 4.1 Chloride 106 Carbon Dioxide 29.0 Anion Gap 5 BUN 10 Creatinine 0.88 Estim Creat Clear Calc 79.55 Est GFR (MDRD) Af Amer 113 Est GFR (MDRD) Non-Af 94 BUN/Creatinine Ratio 11.4 Glucose 108 H Calcium 9.0 - Medical Decision Making Patient vital signs stable, nontoxic, asymptomatic rectal bleed by history. Is on baby aspirin. No abdominal pain or fevers. Hemoglobin stable at 15.9. Stool guaiac was positive. Patient did have one bowel movement per day, remains asymptomatic. Discuss holding his baby aspirin, monitoring symptoms calling Dr. Olson as an outpatient for repeat colonoscopy, signs and symptoms discussed return. All questions were answered. ED Disposition - Plan for ED Patient: Disposition: Home or Assisted Living Diagnosis: Rectal bleed Instructions: RECTAL BLEED, Stable Referrals: Hunter Hameed MD [Primary Care Provider] - Jl Olson MD [STAFF PHYSICIAN] - 2 Days
[2019-01-31 15:31] LABS: Absolute Lymphocyte Count 2.14 X10^3/uL (0.83-4.51); Absolute Neutrophil Count 5.8 X10^3/uL (2.0-7.7); Basophil# 0.02 X10^3/uL; Basophil% 0.2 % (0-1); Eosinophil# 0.22 X10^3/uL; Eosinophils% 2.4 % (0-5); Hematocrit 48.4 % (40-54); Hemoglobin 15.9 g/dL (13.0-16.5); Lymphocyte # 2.14 X10^3/ul (4.0); Lymphocyte % 23.4 % (19-41); Mean Corp Hgb Conc 32.9 g/dL (32-36); Mean Corpuscular Hgb 29.4 pg (27.0-32.0); Mean Corpuscular Volume 89.6 fL (80-94); Mean Platelet Vol. 9.4 fl (6.2-12.0); Monocyte# 0.88 X10^3/uL; Monocyte% 9.6 % (0-10); NRBC Flagged by Analyzer 0 % (0-5); Neutrophil # 5.84 X10^3/uL (2.7-7.7); Neutrophil % 63.9 % (47-70); Platelet Count 258 K/mm3 (150-450); RBC Distribution Width CV 13.5 % (11.6-14.6); RBC Distribution Width SD 43.9 fl (35.1-43.9); White Blood Count 9.2 K/mm3 (4.4-11.0)
[2019-01-31 15:40] LABS: International Normalized Ratio 1.1; Prothrombin Time (Protime)PT. 14.2 SECONDS (11.7-14.9)
[2019-01-31 15:41] LABS: Partial Thromboplast Time 28.4 Seconds (24.1-36.2)
[2019-01-31 15:44] LABS: Anion Gap 5 (5-15); BUN 10 mg/dL (7-18); BUN/Creat Ratio 11.4 RATIO (10-20); Chloride 106 mmol/L (98-107); Creatinine, Serum 0.88 mg/dL (0.70-1.30); EST Glomerular Filtration Rate 94 mL/min (>60); Est Glom Filt Rate - Afr Amer 113 mL/min (>60); Estimated Creatinine Clearance 79.55 ml/min; Glucose 108 mg/dL (74-106); Potassium 4.1 mmol/L (3.5-5.1); Sodium Level 140 mmol/L (136-145)
--- NOTE | 2019-01-31 15:44 | ED.RN ---
KEIKO FROM LAB CALLED WITH POSITIVE OCCULT BLOOD. DR. GISELA WALKER INFORMED OF SAME. NO NEW ORDERS AT THIS TIME.
[2019-01-31 16:15] VITALS: BP 148/85; PULSE 62; RESP 14; O2SAT 96
== END 2019-01-31 16:16 | disposition home or self-care (01) ==
PROVIDERS: Emergency Provider Emergency Medicine; Family Provider Family Medicine; PCP Family Medicine
DX: K62.5 Hemorrhage of anus and rectum (principal); F17.200 Nicotine dependence, unspecified, uncomplicated; Z79.82 Long term (current) use of aspirin; Z79.899 Other long term (current) drug therapy; Z88.5 Allergy status to narcotic agent; Z95.0 Presence of cardiac pacemaker
CPT/HCPCS: 80048; 82274; 85025; 85610; 85730; 99283; A4216

== ENCOUNTER 2019-02-09 12:49 | Day surgery (SDC) | payer MEDICARE, MEDICAID, SELFPAY ==
--- NOTE | 2019-02-08 17:20 | HP.PCM_ITS ---
History and Physical Date of Admission: 02/09/19 HISTORY AND PHYSICAL ? Ferny Slade 1955 ? REFERRING PHYSICIAN: ??Jemal, ? CHIEF COMPLAINT: ??Rectal Bleeding ? HPI: The patient is a 63 year old male referred for endoscopy. ?Ferny notes rectal bleeding for the past few days with blood mixed within the stool. ?He denies anal pain. ?He denies any melena ? The patient??notes no history of upper GI complaints. ? Ferny?has??undergone prior endoscopy. ?He underwent colonoscopy in 2016 which demonstrated 4 small polyps. 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 The patient is being seen by me today at the request of Dr.?Ambrose Hameed MD?for my opinion and advice regarding rectal bleeding.? ? ? PAST?MEDICAL?HISTORY PAST MEDICAL HISTORY Diagnosis Date ? Anxiety ? ? Carotid artery stenosis ? ? s/p right carotid endarterectomy, Dr. Griffiths ? Carpal tunnel syndrome, bilateral ? ? s/p right release, Dr Brady ? COPD with chronic bronchitis (HCC) 12/18/2016 ? FEV1 98% predicted 12/18/2016. Dr. Waletrs ? Diabetes mellitus type II (HCC) ? ? Erectile dysfunction ? ? HLD (hyperlipidemia) ? ? HTN (hypertension) ? ? LBBB (left bundle branch block) ? ? Obesity (BMI 30-39.9) ? ? BO (obstructive sleep apnea) ? ? Osteoarthritis ? ? right shoulder ? Periodic limb movement sleep disorder ? ? PVC's (premature ventricular contractions) ? ? rare ? Spondylolisthesis ? ? lumbar spine ? SSS (sick sinus syndrome) (HCC) ? ? Stroke (HCC) 2016 ? Tobacco use disorder, continuous 12/18/2016 ? PAST?SURGICAL?HISTORY PAST SURGICAL HISTORY Procedure Laterality Date ? CAROTID ENDARTERECTOMY Right 05/2016 ? COLONOSCOPY ? 11/21/2016 ? polyps, repeat in 3 years ? EGD W/O OR W/BRUSH/WASH ? 06/09/2018 ? long-segment Casiano's, repeat EGD in 2 years ? I&D ABSC; SMPL OR SGL Right 1999 ? hand ? LEG SURGERY HX Right ? ? repair of lower leg fracture ? PACEMAKER ? 10/2017 ? REVISE MEDIAN N/CARPAL TUNNEL SURG Right 11/07/2011 ? Carpal tunnel decomp ? REVISE MEDIAN N/CARPAL TUNNEL SURG Left 09/2016 ? ? ? CURRENT?MEDICATIONS ? Current Outpatient Medications: peg 3350-Electrolytes (GOLYTELY) 236-22.74-6.74 -5.86 gram suspension Take 4,000 mL by mouth one time only for 1 dose. Refer to printed prep instructions from your doctor. atorvastatin (LIPITOR) 40 mg tablet Take 1 tablet by mouth once daily. lisinopril (ZESTRIL, PRINIVIL) 5 mg tablet Take 5 mg by mouth once daily. fluticasone-vilanterol (BREO ELLIPTA) 100-25 mcg/dose inhaler Inhale 1 Inhalation as instructed once daily. Omeprazole 40 mg capsule Take 1 capsule by mouth twice daily. VENTOLIN HFA 90 mcg/actuation inhaler Inhale 2 Puffs as instructed every 4 hours as needed. For wheezing/shortness of breath. furosemide (LASIX) 20 mg tablet Take 1 tablet by mouth once daily. nicotine polacrilex (NICORETTE) 2 mg gum Take 1 Each by mouth every 2 hours as needed. (Patient not taking: Reported on 10/11/2018 ) ? No current facility-administered medications for this visit.? ? ALLERGIES:?Codeine ? PERSONAL HISTORY:? SOCIAL?HISTORY Social History ??Socioeconomic History ?Marital status: ?Spouse name: Not on file ?Number of children: Not on file ?Years of education: Not on file ?Highest education level: Not on file ??Occupational History ?Occupation: Disabilty since 04/2016. ?Comment: Sciatica, back and leg pain. ?Occupation: [email or web address], Most of my life. 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 ??Social Needs ?Financial resource strain: Not on file ?Food insecurity: ?Worry: Not on file ?Inability: Not on file ?Transportation needs: ?Medical: Not on file ?Non-medical: Not on file ??Tobacco Use ?Smoking status: Current Every Day Smoker ?Packs/day: 1.50 ?Types: Cigarettes ?Start date: 04/06/1972 ?Quit date: 06/08/2018 ?Years since quittin.6 ?Smokeless tobacco: Never Used ?Tobacco comment: Currently smoking 0.5 daily ??Substance and Sexual Activity ?Alcohol use: No ?Drug use: No ?Sexual activity: Not Currently ??Lifestyle ?Physical activity: ?Days per week: Not on file ?Minutes per session: Not on file ?Stress: Not on file ??Relationships ?Social connections: ?Talks on phone: Not on file ?Gets together: Not on file ?Attends mosque service: Not on file ?Active member of club or organization: Not on file ?Attends meetings of clubs or organizations: Not on file ?Relationship status: Not on file ?Intimate partner violence: ?Fear of current or ex partner: Not on file ?Emotionally abused: Not on file ?Physically abused: Not on file ?Forced sexual activity: Not on file ??Other Topics ?Concerns: ?Not on file ??Social History Narrative ?Not on file ?? ? FAMILY HISTORY:? FAMILY?HISTORY FAMILY HISTORY Problem Relation Age of Onset ? Heart Mother ? ? other (pacemaker) Mother ? ? Cancer Father ?Unknown primary. ? ? REVIEW OF SYMPTOMS: ??The review of systems data was entered by the nurse and reviewed by me ? Nursing Notes: Shayna Edwards LPN ?02/04/2019 ?2:30 PM ?Signed REVIEW OF SYSTEMS: ?General:???The patient denies fatigue, denies weight loss, denies weight gain, denies feeling hot, and denies feelings of cold. ?Eyes: ?The patient denies glaucoma, denies eye injury/surgery, does not wear glasses or contacts. ?Ear/Nose/Throat: ?The patient denies allergies, denies hayfever, denies ear infections, and denies bloody noses. ?Cardiovascular: ?The patient denies chest pain, denies heart disease, NOTES high blood pressure,denies cardiac stent, denies prior heart attack, denies irregular heart beat, denies high cholesterol, ?denies poor circulation, denies heart failure, other cardiac issues, NOTES claudication, denies cold feet, denies peripheral arterial stent. ?Respiratory: ?The patient denies tuberculosis, denies pneumonia, denies frequent cough, denies pulmonary embolism, NOTES shortness of breath, and denies coughing up blood. ?Gastrointestinal: ?The patient denies difficulty swallowing, denies acid reflux, denies ulcers, denies vomiting, denies jaundice/hepatitis, denies gallbladder problems, denies black or tarry stools, denies hemorrhoids, denies bleeding from rectum, denies diverticulitis, denies constipation, denies diarrhea, denies loss of stool control, and denies hernias. ?Kidney/Bladder: ?The patient denies kidney stones, denies urine infections, and denies bloody urine. ?Skin: ?The patient denies a history of skin cancer, denies bleeding/changing moles, and denies a history of skin rash. ?Neurologic: ?The patient denies a history of epilepsy/convulsions, denies headaches, denies head/spinal injuries, and NOTES stroke/TIA. ?Psychiatric: ?The patient denies psychiatric medications, denies depressi on, and denies voices, denies substance abuse. ?Endocrine: ?The patient denies thyroid disorders, denies diabetes, and denies hormonal problems. ?Hematologic: ?The patient denies a history of bruising, denies bleeding, and denies anemia, denies blood clots. ?Infections: ?The patient denies a history of measles and mumps, denies rheumatic fever, and denies sexually transmitted diseases. ?Musculoskeletal: ?The patient denies back pain/injury, denies back problems, NOTES sciatica, denies knee/foot trouble, denies arthritis, or denies gout. ? ? When was patient's last Mammogram screening? N/A ? ?Last Colonoscopy: ??2017 ? ? PHYSICAL EXAMINATION: ? General: ?The patient is 63 year old male, well nourished, well hydrated in no acute distress. ?The patient is oriented to time, place, and person. ? VITALS:?Blood pressure 138/78, pulse 72, temperature 36.6 ?C (97.9 ?F), temperature source Temporal Artery, resp. rate 20, height 167.6 cm (5' 6), weight 114.3 kg (252 lb), SpO2 96 %.?Body mass index is 40.67 kg/m?.? ? HEENT: ?Normal cephalic, ataumatic, pupils are equally round, sclera are anicteric, mucous membranes are moist, oropharynx is clear. ?Neck has no masses, asymmetry or lymphadenopathy. ?Thyroid is unremarkable. ? Respiratory: ?Clear to auscultation and percussion. ?Normal respiratory excursion and pattern. ? Cardiac: ?Examination is regular rate and rhythm. ? Abdominal exam: ?Soft, nontender, ?with no palpable masses. ?No hepatosplenomegaly. ?No palpable hernias. ? Rectal exam:?exam deferred ? Extremities: ?no clubbing, cyanosis or edema. ?No adenopathy. ? Other: ? LABORATORY VALUES: As Noted ? RADIOLOGIC STUDIES: ?As Noted ? Assessment ? IMPRESSION:?Rectal bleeding, Casiano's esophagitis ? PLAN: ?I plan to perform upper and lower?endoscopy. ??We discussed the risks and benefits of the planned endoscopy. ?I have informed the patient that complications can occur including failure to complete the endoscopy and perforation. ?The patient had the opportunity to ask questions concerning the planned endoscopy. ?My staff has also explained the procedure to the patient in understandable terms and has given the patient printed material concerning the procedure. ?The patient freely consents to surgery. ? I plan to use golytely bowel preparation for endoscopy ? ? ? Diagnoses:?(K62.5) Rectal bleeding ?(primary encounter diagnosis) ? My findings have been communicated to Dr.??Ambrose Hameed MD?via shared medical record. ?This note will be forwarded to Dr. Ambrose Hameed MD. ?? Return to Clinic: The patient is instructed to follow-up with me?after the testing has been completed. ? Jl Olson MD
[2019-02-09] VITALS (7 sets, daily range): BP systolic 125–172; BP diastolic 65–87; PULSE 60–67; RESP 18–20; TEMP 36.8–37; O2SAT 94–98; BMI 40.2
[2019-02-09] MEDS: Lactated Ringers 1,000 ML 100 ML IV (13:38)
[2019-02-09 13:45] LABS: Bedside Glucose 114 mg/dL (70-110)
--- NOTE | 2019-02-09 14:00 | EGD_PTH ---
PATIENT: PHILIPPE SADLER Jr. LOC: EN U#:[id number] AGE/SX: 63/M ROOM: RE02/09/[address]: Dr. Jl Olson MD : 1955 BED: DIS: 02/09/2019 SPEC #: [id number] RECD: 02/09/19 15:45 STATUS: EDIS JP #: [id number] SAMARA: 02/09/19 14:[address]: Jl Olson DEPT: SURGICAL PATHOLOGY RECD BY: Pérez Mora ENTERED: 02/10/19 08:04 SP TYPE: EGD BIOPSY OTHR DR: Dr. Hunter Hameed MD Tissues: A - Duodenum, NOS B - Gastric mucous membrane C - Esophageal mucous membrane D - Esophageal mucous membrane E - Esophageal mucous membrane F - COLON BIOPSY Procedures: Special Stain Group II Surgery Specimen Level IV Alcian Blue/PAS (control) HEADER OPERATION: Colonoscopy, EGD ([facility] [place]) PRE-OP DIAGNOSIS: History of Casiano's; rectal bleeding TISSUE SUBMITTED: A - Duodenal biopsy, B - Antral biopsy for H. pylori and pathology, C - Distal esophageal biopsy, D - Distal esophageal biopsy + 2 cm, E - Distal esophageal biopsy + 4 cm, F - Hepatic flexure polyp MICROSCOPIC DIAGNOSIS A. Duodenal biopsy: A fragment of duodenal mucosa, no pathologic diagnosis. B. Antral biopsy: Mild gastritis. Focal mucosal congestion. See microscopic description and comment. C. 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 Mild to moderate chronic inflammation. Negative for dysplasia. See comment. D. 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 Focal mild chronic inflammation. Negative for dysplasia. See comment. E. 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 Focal mild chronic inflammation. Negative for dysplasia. See comment. F. Hepatic flexure polyp, biopsy: Tubular adenoma. SJ:josef 02/11/19 COMMENT B. The results of immunohistochemistry for Helicobacter pylori will be reported separately ([id number]). C, D & E - Alcian blue/PAS stain with matched control is used in the evaluation of the specimens. MICROSCOPIC DESCRIPTION Slides are reviewed. B. The specimen shows fragments of gastric mucosa with chronic inflammatory cell infiltrates in the lamina propria consisting of lymphocytes and plasma cells, consistent with mild chronic gastritis. Focal mucosal congestion is also noted. GROSS DESCRIPTION A - Received in fixative is one container labeled with the patient's name and designated duodenal biopsy. The specimen consists of one irregular fragment of light tobias soft tissue that measures 0.3 x 0.3 x 0.1 cm. The specimen is totally submitted in one cassette. B - Received in fixative is one container labeled with the patient's name and designated antral biopsy. The specimen consists of one irregular fragment of light tobias soft tissue that measures 0.3 x 0.3 x 0.1 cm. The specimen is totally submitted in one cassette. C - Received in fixative is one container labeled with the patient's name and designated distal esophageal biopsy. The specimen consists of two irregular fragments of light tobias soft tissue that in aggregate measure 1 x 0.2 x 0.1 cm. The specimen is totally submitted in one cassette. D - Received in fixative is one container labeled with the patient's name and designated distal esophageal biopsy +2 cm. The specimen consists of multiple irregular fragments of light tobias soft tissue that in aggregate measure 1 x 0.3 x 0.1 cm. The specimen is totally submitted in one cassette. E - Received in fixative is one container labeled with the patient's name and designated distal esophageal biopsy +4 cm. The specimen consists of multiple irregular fragments of light tobias soft tissue that in aggregate measure 0.8 x 0.2 x 0.1 cm. The specimen is totally submitted in one cassette. F - Received in fixative is one container labeled with the patient's name and designated hepatic flexure polyp. The specimen consists of two irregular fragments of light tobias soft tissue that in aggregate measure 0.4 x 0.3 x 0.1 cm. The specimen is totally submitted in one cassette. / SJ:rg 02/10/19 TC:3 CPT: 38217 x6, 51359 x3
--- NOTE | 2019-02-09 14:00 | IMM_PTH ---
PATIENT: PHILIPPE SADLER Jr. LOC: EN U#:[id number] AGE/SX: 63/M ROOM: RE02/09/[address]: Dr. Jl Olson MD : 1955 BED: DIS: 02/09/2019 SPEC #: [id number] RECD: 02/10/19 09:29 STATUS: EDIS REQ #: [id number] SAMARA: 02/09/19 14:[address]: Jl Olson DEPT: IMMUNOHISTOCHEMISTRY RECD BY: Allyson Michael ENTERED: 02/10/19 09:29 SP TYPE: IMMUNO OTHR DR: Dr. Hunter Hameed MD Tissues: B - Stomach, NOS Procedures: H Pylori (initial) PHYSICIAN & INSTITUTION [place] [address] SPECIMEN INFORMATION: Tissue Source: B - Antral biopsy Clinical Info: History of Casiano's, rectal bleeding Specimen Number: [id number] CPT code: 30678 METHODOLOGY: Deparaffinized sections of prefer/formalin-fixed tissue or PAP/DQ stained slides are incubated with monoclonal/polyclonal antibodies/oligonucleotide probes. Localization is made via biotin free immunoperoxidase method. Appropriate controls are performed and reacted as expected. Results on target cell population are indicated in the following table: RESULTS: ANTIBODY / CLONE RESULT Block B H Pylori (polyclonal) negative These tests were developed and their performance characteristics determined by [facility]. They may not have been cleared or approved by the U.S. Food and Drug Administration. The FDA has determined that such clearance or approval is not necessary. INTERPRETATION: B. Antral biopsy: Negative for Helicobacter pylori organisms. SJ:josef 02/11/19
--- NOTE | 2019-02-09 15:25 | OP.ENDO_ITS ---
02/09/2019 Hunter Hameed Re : Upper GI endoscopy procedure for Ferny Hameed This procedure was performed on Saturday, February 09, 2019. My impressions and recommendations are as follows: Impressions : - Normal examined jejunum. - Duodenitis. Biopsied. - Gastritis. Biopsied. - Small hiatal hernia. 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 Biopsied. Recommendations : - Discharge patient to home. - Resume previous diet. - Continue present medications. - Return to physician per diem physical therapist assistant in 1 week. My findings are described in the full procedure note, which is enclosed. If I can be of further assistance, please feel free to contact me at Doctor phone number(s): , Work: . Sincerely, Jl Olson MD 02/09/2019 3:24:56 PM This report has been signed electronically.
--- NOTE | 2019-02-09 15:27 | OP.ENDO_ITS ---
02/09/2019 Hunter Hameed Re : Colonoscopy procedure for Ferny Hameed This procedure was performed on Saturday, February 09, 2019. My impressions and recommendations are as follows: Impressions : - One 7 mm polyp at the hepatic flexure, removed with a cold snare. Resected and retrieved. - The examination was otherwise normal. - The distal rectum and anal verge are normal on retroflexion view. Recommendations : - Discharge patient to home. - Resume previous diet. - Continue present medications. - Repeat colonoscopy for surveillance based on pathology results. - Return to physician anesthetic assistant in 1 week. My findings are described in the full procedure note, which is enclosed. If I can be of further assistance, please feel free to contact me at Doctor phone number(s): , Work: . Sincerely, Jl Olson MD 02/09/2019 3:26:37 PM This report has been signed electronically.
== END 2019-02-09 16:07 | disposition home or self-care (01) ==
LOC: EN 12:50 → AC 12:52
PROVIDERS: Family Provider Family Medicine; PCP Family Medicine; Referring Provider Family Medicine; Visit Provider Surgery
PROC: 0DJD8ZZ Inspection of Lower Intestinal Tract, Via Natural or Artificial Opening Endoscopic (ICD-10-PCS; CPT 45378; principal; 2019-02-09 13:55)
DX: Z12.11 Encounter for screening for malignant neoplasm of colon (principal); D12.3 Benign neoplasm of transverse colon; K22.70 Barrett's esophagus without dysplasia; K29.80 Duodenitis without bleeding; K29.70 Gastritis, unspecified, without bleeding; K44.9 Diaphragmatic hernia without obstruction or gangrene; K21.9 Gastro-esophageal reflux disease without esophagitis; J44.9 Chronic obstructive pulmonary disease, unspecified; I49.5 Sick sinus syndrome; I44.7 Left bundle-branch block, unspecified; E11.9 Type 2 diabetes mellitus without complications; I10 Essential (primary) hypertension; E78.5 Hyperlipidemia, unspecified; G47.33 Obstructive sleep apnea (adult) (pediatric); M19.90 Unspecified osteoarthritis, unspecified site; G56.03 Carpal tunnel syndrome, bilateral upper limbs; G47.61 Periodic limb movement disorder; N52.9 Male erectile dysfunction, unspecified; F41.9 Anxiety disorder, unspecified; E66.9 Obesity, unspecified; F17.210 Nicotine dependence, cigarettes, uncomplicated; Z79.82 Long term (current) use of aspirin; Z79.899 Other long term (current) drug therapy; Z88.5 Allergy status to narcotic agent; Z86.010 Personal history of colon polyps; Z86.73 Personal history of transient ischemic attack (TIA), and cerebral infarction without residual deficits; Z95.0 Presence of cardiac pacemaker
CPT/HCPCS: 43239; 45385; 82962; 88305; 88313; 88342; J7120; J2405

== ENCOUNTER → 2019-03-08 14:19 | Outpatient (CLI) | payer MEDICARE, MEDICAID, SELFPAY ==
[2019-02-09 13:27] VITALS: BMI 40.2
--- NOTE | 2019-03-08 11:45 | LES_PTH ---
PATIENT: PHILIPPE SADLER Jr. LOC: [place] U#:[id number] AGE/SX: 69/M ROOM: RE03/08/[address]: Dr. Wilmer Chamorro MD : 1955 BED: DIS: SPEC #: [id number] RECD: 03/08/19 14:15 STATUS: EDIS JP #: [id number] SAMARA: 03/08/19 11:[address]: Wilmer Chamorro DEPT: SURGICAL PATHOLOGY RECD BY: Allyson Michael ENTERED: 03/08/19 14:45 SP TYPE: Lesion OTHR DR: Dr. Hunter Hameed MD Tissues: A - Skin of eyelid, NOS B - Skin of eyelid, NOS Procedures: Surgery Specimen Level IV HEADER OPERATION: Lesion removal left upper lid; lesion removal right lower lid PRE-OP DIAGNOSIS: Present x years, removed/returned TISSUE SUBMITTED: A - Left upper lid, B - Right lower lid MICROSCOPIC DIAGNOSIS A. Left upper lid lesion, biopsy: Squamous papilloma. B. Right lower lid lesion, biopsy: Squamous papilloma. SWATI:josef 03/09/19 MICROSCOPIC DESCRIPTION Slides are reviewed. GROSS DESCRIPTION A - Received in fixative is one container labeled with the patient's name and designated left upper lid. The specimen consists of polypoid fragments of tobias soft tissue measuring 0.5 x 0.5 x 0.2 cm. The specimen is inked and submitted entirely in one cassette. B - Received in fixative is one container labeled with the patient's name and designated right lower lid. The specimen consists of a piece of tobias white skin measuring 0.4 x 0.2 x 0.2 cm. The entire specimen is submitted in one cassette. / SWATI:josef 03/08/19 TC:1 CPT: 66555 x2
== END ==
PROVIDERS: Family Provider Family Medicine; PCP Family Medicine; Referring Provider Ophthalmology; Visit Provider Ophthalmology
DX: D23.121 Other benign neoplasm of skin of left upper eyelid, including canthus (principal); D23.112 Other benign neoplasm of skin of right lower eyelid, including canthus
CPT/HCPCS: 88305

== ENCOUNTER 2019-08-01 12:15 | Emergency (ER) | payer MEDICARE, MEDICAID, SELFPAY ==
[2019-05-03 14:58] VITALS: BMI 40.6
[2019-08-01 12:16] VITALS: BP 151/70; PULSE 69; RESP 16; TEMP 36.3; O2SAT 96; BMI 36.0
--- NOTE | 2019-08-01 12:36 | ED.DCSUM_ITS ---
History of Present Illness Chief Complaint: Cellulitis Informant: Patient Onset: Days Context: Gradual Onset Timing: Continuous Current Severity: Moderate Maximum Severity: Moderate Narrative: The patient is a 64-year-old male with history of yqs-vqdvooy-wwirnlmin diabetes that presents to the emergency department with cellulitis of his left lower extremity. Patient states that he was cutting grass over the weekend. He thinks that something bit him on Thursday. He states he had some itching around his harkins, but over the past 2 days has had increasing redness. He does admit to subjective fevers. He denies any nausea or vomiting. He denies any shortness of breath. He is otherwise been in his normal state of health. He has not taken anything for the symptoms. Prior similar symptoms: No Recent Illness/Hospitalization: No Past Medical History - Allergies and Home Meds Allergies/Adverse Reactions: Allergies codeine Adverse Reaction (Verified 05/03/19 14:58) Nausea Primary Care Physician: Hunter Hameed MD [Primary Care Provider] - Prior records reviewed: Yes Past Medical History: - - Diabetes, hypertension, prior stroke Surgical History: noncontributory Smoking Status: Current every day smoker - Family History Maternal Family History: Family History (Last Reviewed 05/03/19 @ 15:[address] Blas Pal MD) Mother Heart disease Pacemaker Father Cancer Family History: Reports: Heart Disease Review of Systems General: Reports: Chills, Fever. Denies: Sweats Eyes: Denies: Visual changes - bilaterally, Diplopia ENT: Denies: Rhinorrhea, Sore throat Cardiovascular: Denies: Chest pain, Palpitations Respiratory: Denies: Dyspnea, Cough, Dyspnea on exertion Gastrointestinal: Denies: Abdominal pain, Nausea, Vomiting, Diarrhea, Melena, Hematochezia Genitourinary: Denies: Dysuria, Hematuria, Frequency Musculoskeletal: Denies: Back pain, Extremity Pain Skin: Reports: Rash. Denies: Wounds Neurological: Denies: Headache, Weakness, Numbness Physical Exam Vital Signs/Narrative: Vital Signs Temp Pulse Resp BP Pulse Ox 08/01/19 12:16 97.3 F L 69 16 151/70 H 96 Inital Vital Signs reviewed: Yes General: Well nourished, Well developed, No Acute Distress Head: Normocephalic, Atraumatic Eyes: Perrl, EOMI ENT: Moist mucous membranes, No rhinorrhea Neck: Supple, Nontender Cardiovascular: Regular rate, Regular rhythm, No murmurs Respiratory: No distress, CTA bilaterally, Chest nontender Abdomen: Soft, Nontender, Nondistended, Normal bowel sounds Back: Nontender, Normal Inspection Extremities: No edema, Tenderness - Erythema of the left lower extremity. Normal pulses. No crepitus. No lymphangitic streak. Skin: Normal color, No rash Neurological: Alert, Oriented x3, Cranial nerves II-XII grossly intact, Normal Strength, Normal Sensation Psychological: Normal affect, Normal Mood Diagnostic/Tx/Re-eval Abnormal Lab Results 08/01/19 08/01/19 08/01/19 12:45 12:45 12:45 WBC 15.0 H RBC 5.30 Hgb 15.3 Hct 46.3 MCV 87.4 MCH 28.9 MCHC 33.0 RDW Std Deviation 44.6 H RDW Coeff of Julito 13.8 Plt Count 188 MPV 9.7 Immature Gran % (Auto) 0.700 Neut % (Auto) 81.4 H Lymph % (Auto) 8.7 L Peñuel[place] % (Auto) 8.9 Eos % (Auto) 0.1 Baso % (Auto) 0.2 Absolute Neuts (auto) 12.2 H Absolute Lymphs (auto) 1.31 Nucleated RBC % 0 Sodium 136 Potassium 3.4 L Chloride 104 Carbon Dioxide 28.0 Anion Gap 4 L BUN 13 Creatinine 1.09 Estim Creat Clear Calc 65.70 Est GFR (MDRD) Af Amer 88 Est GFR (MDRD) Non-Af 73 BUN/Creatinine Ratio 11.9 Glucose 133 H Lactic Acid 1.8 Calcium 9.0 Total Bilirubin 2.20 H AST 20 ALT 25 Alkaline Phosphatase 105 Total Protein 7.6 Albumin 3.3 Globulin 4.3 H Albumin/Globulin Ratio 0.8 L - Medical Decision Making The patient presents with cellulitis of his left lower extremity. He has normal pulses. There is no crepitus or streaking. He has no adenopathy in his groin. He is a diabetic, but not on insulin. Metabolic work-up was pursued. He does have a leukocytosis, otherwise labs were relatively unremarkable. Lactic acid was negative. I did have conversation with the patient and he wants to attempt outpatient therapy, especially in light of the current pandemic. I do feel that this is reasonable. He states that if he is not improving or worsening in any way he will return. The patient was given Rocephin and clindamycin IV and will be continued on Keflex and Bactrim as an outpatient. He is comfortable with this plan of care. Impression 1. Left lower extremity cellulitis ED Disposition - Plan for ED Patient: Instructions: Cellulitis Prescriptions: Smz/Tmp Ds [Bactrim Ds] 1 tab PO BID #14 tab Prescription Printed Cephalexin [Keflex] 500 mg PO Q6 #40 cap Prescription Printed Referrals: Hunter Hameed MD [Primary Care Provider] -
[2019-08-01 12:59] LABS: Absolute Lymphocyte Count 1.31 X10^3/uL (0.83-4.51); Absolute Neutrophil Count 12.2 X10^3/uL (2.0-7.7); Basophil# 0.03 X10^3/uL; Basophil% 0.2 % (0-1); Eosinophil# 0.01 X10^3/uL; Eosinophils% 0.1 % (0-5); Hematocrit 46.3 % (40-54); Hemoglobin 15.3 g/dL (13.0-16.5); Lymphocyte # 1.31 X10^3/ul (4.0); Lymphocyte % 8.7 % (19-41); Mean Corpuscular Hgb 28.9 pg (27.0-32.0); Mean Corpuscular Volume 87.4 fL (80-94); Mean Platelet Vol. 9.7 fl (6.2-12.0); Monocyte# 1.34 X10^3/uL; Monocyte% 8.9 % (0-10); NRBC Flagged by Analyzer 0 % (0-5); Neutrophil # 12.24 X10^3/uL (2.7-7.7); Neutrophil % 81.4 % (47-70); Platelet Count 188 K/mm3 (150-450); RBC Distribution Width CV 13.8 % (11.6-14.6); RBC Distribution Width SD 44.6 fl (35.1-43.9)
[2019-08-01 13:14] LABS: ALB/GLOB Ratio 0.8 RATIO (0.9-2.4); AST(SGOT) 20 U/L (15-37); Alanine Aminotransfer ALT/SGPT 25 U/L (16-61); Albumin, Serum 3.3 g/dL (3.2-5.0); Alkaline Phosphatase 105 U/L (45-117); Anion Gap 4 (5-15); BUN 13 mg/dL (7-18); BUN/Creat Ratio 11.9 RATIO (10-20); Chloride 104 mmol/L (98-107); Creatinine, Serum 1.09 mg/dL (0.70-1.30); EST Glomerular Filtration Rate 73 mL/min (>60); Est Glom Filt Rate - Afr Amer 88 mL/min (>60); Globulin 4.3 g/dL (2.2-4.2); Glucose 133 mg/dL (74-106); Potassium 3.4 mmol/L (3.5-5.1); Protein, Total 7.6 g/dL (6.4-8.2); Sodium Level 136 mmol/L (136-145)
[2019-08-01 13:26] LABS: Lactic Acid 1.8 mmol/L (0.4-1.9)
[2019-08-01 14:27] VITALS: BP 149/82; PULSE 63; RESP 10; O2SAT 98
[2019-08-01] MEDS: Ceftriaxone 1 GM/50 ML BAG IV (15:15)
[2019-08-01 16:02] VITALS: BP 151/73; PULSE 64; RESP 14; O2SAT 96
== END 2019-08-01 16:10 | disposition home or self-care (01) ==
LOC: ED 12:36
PROVIDERS: Emergency Provider Emergency Medicine; PCP Family Medicine
DX: L03.116 Cellulitis of left lower limb (principal); E11.9 Type 2 diabetes mellitus without complications; I10 Essential (primary) hypertension; F17.200 Nicotine dependence, unspecified, uncomplicated; Z79.84 Long term (current) use of oral hypoglycemic drugs; Z79.82 Long term (current) use of aspirin; Z79.899 Other long term (current) drug therapy; Z88.5 Allergy status to narcotic agent; Z86.73 Personal history of transient ischemic attack (TIA), and cerebral infarction without residual deficits
CPT/HCPCS: 80053; 83605; 85025; 87040; 96361; 96365; 96366; 96367; 99285; J7040; J7050

== ENCOUNTER 2020-01-11 10:01 | Emergency (ER) | payer MEDICARE, MEDICAID, SELFPAY ==
[2019-12-19 14:41] VITALS: BMI 39.3
[2020-01-11 10:02] VITALS: BP 130/96; PULSE 64; RESP 15; TEMP 35.2; O2SAT 98; BMI 40.3
--- NOTE | 2020-01-11 10:37 | ED.DCSUM_ITS ---
- ER Visit Summary Date of Service: 01/11/20 Chief Complaint: Bumps on his left chest wall History of Present Illness: The patient is a 64 M past medical history of prior stroke, left-sided pacemaker and noncemented diabetes. He states that he has had bumps and mild redness to his left chest wall for last 3 to 4 days. No fever or chills. No prior history. He was just concerned because he had a pacemaker for the last 2 to 3 years and did not want it to get involved with this area. Any other complaints. Physical Examination: Older male no acute distress vital signs stable afebrile. Patient does not look septic or toxic. H EENT exam unremarkable. Neck nontender no lymphadenopathy. Lungs clear to auscultation bilaterally. Heart regular rhythm no murmur. Chest wall left upper chest wall is a pacemaker it looks normal. Is nontender. Left middle chest by the sternum he is about a 1 inch to 2 inch area that circular consistent with folliculitis. There is no abscess. It does not involve his pacemaker site. Abdomen soft nontender. Normal bowel sounds no peritoneal signs. Patient moving all 4 extremities. No edema. Neurologically is awake and alert. Moving all 4 extremities. Normal stoker erector strength bilaterally. Test Results: None Emergency Department Course and Treatment: Patient has folliculitis to his left chest wall. Is not very large. It does not involve the pacemaker site. There is nothing to drain there is no abscess. He will be started on Keflex and given his first dose in the ER. Treatment Plan: Keflex 500 mg 3 times daily for 10 days. Follow-up with his primary care physician. Return if worse. Disposition: Discharge Impression: Acute left chest wall folliculitis History left-sided pacemaker This note was generated with [employer] software. It may contain incorrect words, spelling, and punctuation that were not noted in review of the chart prior to signing ED Disposition - Plan for ED Patient: Referrals: Hunter Hameed MD [Primary Care Provider] -
--- NOTE | 2020-01-11 10:40 | ED.DEP ---
ED Disposition - Plan for ED Patient: Disposition: Home or Assisted Living Instructions: ED Folliculitis Prescriptions: Cephalexin [Keflex] 500 mg PO Q8 #30 cap Prescription Printed Referrals: Hunter Hameed MD [Primary Care Provider] - 1 Week Additional Instructions: Follow-up with your doctor in 5 to 7 days to ensure this is improving. Return to the emergency department if there is getting a lot larger and worse or you develop a fever. The antibiotic Keflex is 1 pill 3 times a day for the next 10 days.
[2020-01-11] MEDS: Cephalexin 500 MG Capsule PO (10:47)
== END 2020-01-11 10:50 | disposition home or self-care (01) ==
LOC: ED 10:43
PROVIDERS: Emergency Provider Emergency Medicine; PCP Family Medicine
DX: L73.9 Follicular disorder, unspecified (principal); E11.9 Type 2 diabetes mellitus without complications; Z72.0 Tobacco use; Z79.82 Long term (current) use of aspirin; Z79.899 Other long term (current) drug therapy; Z86.73 Personal history of transient ischemic attack (TIA), and cerebral infarction without residual deficits; Z95.0 Presence of cardiac pacemaker
CPT/HCPCS: 99283

== ENCOUNTER → 2020-12-26 13:53 | Outpatient (CLI) | payer MEDICARE, MEDICAID, SELFPAY ==
--- NOTE | 2020-12-26 13:58 | ECHOD_ITS ---
Reason For Study: Dyspnea/SOB Procedure This was a 2D Doppler, Color Flow transthoracic echocardiogram. Exam performed in department. Left Ventricle Normal LV size. Moderate concentric left ventricular hypertrophy. The estimated ejection fraction is 45 %. Stage 1 diastolic dysfunction. Apical wall motion abnormality may reflect pacemaker activation. Right Ventricle Normal RV size. ICD or pacer leads identified within the right ventricle. Normal systolic function. Atria Normal left atrium. Normal right atrium. Mitral Valve Normal mitral valve. Tricuspid Valve Normal tricuspid valve. Aortic Valve Trisinus/trileaflet aortic valve. Mild restriction of the aortic valve. Pulmonic Valve Normal pulmonic valve. Great Vessels Normal aortic root. Pericardium/Pleural No pericardial effusion. MMode/2D Measurements & Calculations LVIDd: 4.8 cm IVSd: 1.4 cm LVOT diam: 2.0 cm LVIDs: 3.5 cm LVPWd: 1.7 cm LVOT area: 3.0 cm2 RVDd: 4.0 cm FS: 26.6 % LA dimension: 3.6 cm LAV(MOD-bp): 48.5 ml LA A4 area: 16.0 cm2 LAV(MOD-bp) Indexed: 22.2 ml/m2 LAV(MOD-sp2): 51.3 ml LAV(MOD-sp4): 42.1 ml RA A4 area: 14.8 cm2 Time Measurements MV dec time: 0.25 sec Doppler Measurements & Calculations MV E max mahesh: 67.6 cm/sec Lat Peak E' Mahesh: 6.1 cm/sec Med Peak E' Mahesh: 4.7 cm/sec MV A max mahesh: 100.4 cm/sec E/E' lat: 11.1 E/E' med: 14.3 MV E/A: 0.67 MV V2 max: 101.4 cm/sec MV P1/2t max mahesh: 70.1 cm/sec Ao V2 max: 163.7 cm/sec MV max P.1 mmHg MV P1/2t: 79.3 msec Ao max P.7 mmHg MV V2 mean: 53.0 cm/sec MV dec slope: 258.8 cm/sec2 Ao V2 mean: 108.7 cm/sec MV mean P.4 mmHg Ao mean P.3 mmHg MV V2 VTI: 21.9 cm MVA(P1/2t): 2.8 cm2 Ao V2 VTI: 29.5 cm MVA(VTI): 2.6 cm2 ALFREDITO(I,D): 1.9 cm2 ALFREDITO(V,D): 1.8 cm2 LV V1 max: 95.1 cm/sec SV(LVOT): 57.1 ml PA V2 max: 125.2 cm/sec LV V1 max P.6 mmHg LV V1 mean P.7 mmHg LV V1 mean: 59.8 cm/sec LV V1 VTI: 18.8 cm ECHO/Echo Complete Interpretation Summary Normal LV size. The estimated ejection fraction is 45 %. Stage 1 diastolic dysfunction. Moderate concentric left ventricular hypertrophy. Ordering Physician: Mary Wynne Referring Physician: Ambrose Hameed Performed By: Iglesia Francis RCS
== END ==
PROVIDERS: PCP Family Medicine; Referring Provider Physician Assistant Medical; Visit Provider Physician Assistant Medical
DX: I35.0 Nonrheumatic aortic (valve) stenosis (principal); R06.02 Shortness of breath
CPT/HCPCS: 93306

== ENCOUNTER → 2021-01-28 09:35 | Outpatient (CLI) | payer MEDICARE, MEDICAID, SELFPAY ==
[2021-01-28 11:05] LABS: BNP,B-Type NATRIURETIC PEPTIDE 83.7 pg/mL (0-100)
[2021-01-28 11:09] LABS: Anion Gap 6 (5-15); BUN 8 mg/dL (7-18); BUN/Creat Ratio 9.9 RATIO (10-20); Calcium,Total 8.9 mg/dL (8.5-10.1); Chloride 107 mmol/L (98-107); EST Glomerular Filtration Rate 103 mL/min (>60); Est Glom Filt Rate - Afr Amer 124 mL/min (>60); Glucose 135 mg/dL (74-106); Potassium 3.7 mmol/L (3.5-5.1); Sodium Level 139 mmol/L (136-145)
== END ==
PROVIDERS: PCP Family Medicine; Referring Provider Nurse Practitioner Gerontology; Visit Provider Nurse Practitioner Gerontology
DX: I10 Essential (primary) hypertension (principal); R06.02 Shortness of breath
CPT/HCPCS: 36415; 80048; 83880

== ENCOUNTER → 2022-05-13 | Outpatient (CLI) | payer MEDICARE, MEDICAID, SELFPAY ==
--- NOTE | 2022-05-13 15:50 | CT_ITS ---
EXAM: CT CHEST, LUNG CANCER SCREENING WITHOUT INTRAVENOUS CONTRAST CLINICAL INDICATION: TOBACCO USE TECHNIQUE: Helically acquired images were obtained of the chest without intravenous contrast using low dose (LDCT) lung cancer screening protocol. This CT exam was performed using one or more of the following dose reduction techniques: automated exposure control, adjustment of the mA and/or kV according to patient size, and/or use of iterative reconstruction technique. This report was created using [employer] report generation technology. COMPARISON: None. FINDINGS: LUNGS AND PLEURAL SPACES: Mild emphysematous changes in lung apices. There are minimal coronary artery calcifications present. No mass. No pleural effusion or thickening. No pneumothorax. HEART: See above. MEDIASTINUM: Unremarkable. No mediastinal or hilar adenopathy. Esophagus is unremarkable. No hiatal hernia. THYROID: Unremarkable. No thyroid lesions. BONES/JOINTS: Unremarkable. No suspicious lytic or blastic abnormality. VASCULATURE: See above. LYMPH NODES: Unremarkable. No enlarged lymph nodes. CT/Low Dose CT Lung Screening IMPRESSION: 1. Lung-RADS score: 1 - Recommend continued annual screening with low-dose CT (LDCT) in 12 months. 2. Mild emphysematous change. There is no acute pulmonary abnormality. Electronically Signed: Manuelito Adams MD at 21:03 [facility] ,
== END | disposition home or self-care (01) ==
LOC: CT 15:48
PROVIDERS: PCP Family Medicine
DX: Z87.891 Personal history of nicotine dependence (principal)
CPT/HCPCS: 71271

== ENCOUNTER → 2022-11-17 | Outpatient (CLI) | payer MEDICARE, MEDICAID, SELFPAY ==
--- NOTE | 2022-11-17 09:44 | ECHOCS_ITS ---
Reason For Study: Dilated Cardiomyopathy Procedure This was a 2D Doppler, Color Flow transthoracic echocardiogram. The study was technically difficult. Contrast injection was performed. Exam performed in department. Left Ventricle Normal LV size. The estimated ejection fraction is 50 %. Stage 1 diastolic dysfunction. No regional wall motion abnormalities noted. Right Ventricle Normal RV size. ICD or pacer leads identified within the right ventricle. Normal systolic function. Atria Normal left atrium. Normal right atrium. Mitral Valve Normal mitral valve. Tricuspid Valve The tricuspid valve is not well visualized. Mild (1+) tricuspid valve insufficiency. Pulmonary artery systolic pressure is 33 mmHg. Aortic Valve The aortic valve is not well visualized. Pulmonic Valve The pulmonic valve is not well visualized. Great Vessels Normal aortic root. The pulmonary artery is normal size. Normal inferior vena cava. Pericardium/Pleural No pericardial effusion. Medication 20 gauge I.V. with prn adaptor inserted into right arm. Diluted definity 3ml given slow IV push to enhance endocardial definition. MMode/2D Measurements & Calculations LVIDd: 5.0 cm IVSd: 1.00 cm LVOT diam: 2.0 cm LVIDs: 3.3 cm LVPWd: 0.94 cm FS: 33.3 % LVOT area: 3.1 cm2 Ao root diam: 3.5 cm LAV(MOD-bp): 53.5 ml LVAd ap4: 44.2 cm2 LA dimension: 3.5 cm LAV(MOD-bp) Indexed: 24.7 ml/m2 LVLd ap4: 9.4 cm LAV(MOD-sp2): 50.0 ml EDV(MOD-sp4): 165.4 ml LAV(MOD-sp4): 52.5 ml EDV(sp4-el): 175.4 ml LVAs ap4: 25.9 cm2 LVLs ap4: 7.7 cm ESV(MOD-sp4): 70.2 ml ESV(sp4-el): 74.2 ml EF(MOD-sp4): 57.5 % EF(sp4-el): 57.7 % SV(MOD-sp4): 95.1 ml SV(sp4-el): 101.2 ml LA A4 area: 18.8 cm2 RA A4 area: 14.5 cm2 Time Measurements MV dec time: 0.16 sec Doppler Measurements & Calculations MV E max mahesh: 66.0 cm/sec Lat Peak E' Mahesh: 6.7 cm/sec Med Peak E' Mahesh: 7.2 cm/sec MV A max mahesh: 102.2 cm/sec E/E' lat: 9.8 E/E' med: 9.2 MV E/A: 0.65 MV V2 max: 102.5 cm/sec MV P1/2t max mahesh: 65.8 cm/sec Ao V2 max: 211.6 cm/sec MV max P.2 mmHg MV P1/2t: 69.4 msec Ao max P.0 mmHg MV V2 mean: 53.0 cm/sec MV dec slope: 277.9 cm/sec2 Ao V2 mean: 140.7 cm/sec MV mean P.4 mmHg MVA(P1/2t): 3.2 cm2 Ao mean P.4 mmHg MV V2 VTI: 21.5 cm Ao V2 VTI: 41.6 cm MVA(VTI): 3.7 cm2 AV (velocity ratio): 0.62 ALFREDITO(I,D): 1.9 cm2 ALFREDITO(V,D): 1.8 cm2 LV V1 max: 125.7 cm/sec SV(LVOT): 80.2 ml PA V2 max: 154.8 cm/sec LV V1 max P.3 mmHg PA V2 mean: 83.7 cm/sec LV V1 mean P.6 mmHg LV V1 mean: 88.7 cm/sec LV V1 VTI: 25.8 cm TR max mahesh: 276.9 cm/sec TR max P.7 mmHg ECHO/Echo Complete W/ Contrast Interpretation Summary Normal LV size. The estimated ejection fraction is 50 %. Stage 1 diastolic dysfunction. ICD or pacer leads identified within the right ventricle. Contrast injection was performed. Ordering Physician: Mary Wynne Referring Physician: Mary Wynne Performed By: Iglesia Francis RCS
== END | disposition home or self-care (01) ==
LOC: CVS 09:41
PROVIDERS: PCP Family Medicine; Referring Provider Physician Assistant Medical; Visit Provider Physician Assistant Medical
DX: I44.39 Other atrioventricular block (principal)
CPT/HCPCS: 93306; Q9957; A4216; C8929

== ENCOUNTER → 2023-08-24 | Outpatient (CLI) | payer MEDICARE, MEDICAID, SELFPAY ==
--- NOTE | 2023-08-24 12:55 | CDU_ITS ---
Reason For Study: Change in vision right eye Rt. Velocities/BP Lt. Velocities/BP Prox CCA 59.8/15.4 cm/sec. Prox CCA 104.7/32.3 cm/sec. Mid CCA 52.2/15.4 cm/sec. Mid CCA 96.1/27.4 cm/sec. Dist CCA 40/9.7 cm/sec. Dist CCA 86.3/28.6 cm/sec. Prox ICA 422.3/195.4 cm/sec. Prox ICA 99.8/28.6 cm/sec. Mid ICA 386.7/140.7 cm/sec. Mid ICA 130.2/40.7 cm/sec. Dist ICA 28.9/12.4 cm/sec. Dist ICA 101/31.6 cm/sec. Rt. ICA/CCA = 8.09. Lt. ICA/CCA = 1.35. Prox ECA 185.1/24.8 cm/sec. Prox ECA 126.6/15.2 cm/sec. Rt. Vert. 49.8/15.7 cm/sec. Lt. Vert. 40.4/13.3 cm/sec. Right Extracranial There is heterogeneous, irregular atherosclerotic plaque noted in the right common carotid artery. There is intimal thickening but no significant atherosclerotic plaque noted in the right internal carotid artery. There is heterogeneous, irregular atherosclerotic plaque noted in the right external carotid artery. Antegrade flow is noted in the right vertebral artery. Left Extracranial There is heterogeneous, irregular atherosclerotic plaque noted in the left common carotid artery. There is heterogeneous, irregular atherosclerotic plaque noted in the left internal carotid artery. There is heterogeneous, irregular atherosclerotic plaque noted in the left external carotid artery. Antegrade flow is noted in the left vertebral artery. Procedure Carotid Duplex 15859. This is a Carotid Duplex examination using B-mode, color flow and specral Doppler. Preliminary report given to Abril TRIPATHI. Exam performed in department. VL/Carotid Duplex Ultrasound Interpretation Summary Severe (>70%) stenosis right extracranial internal carotid. Moderate (50-69%) stenosis left extracranial internal carotid. Patent and antegrade vertebrals bilaterally. Ordering Physician: Rosemary Everett Referring Physician: Ambrose Hameed Performed By: Mayelin Franklin RVT
== END | disposition home or self-care (01) ==
LOC: CVS 12:51
PROVIDERS: PCP Family Medicine; Referring Provider Nurse Practitioner Gerontology; Visit Provider Nurse Practitioner Gerontology
DX: I65.21 Occlusion and stenosis of right carotid artery (principal); H53.9 Unspecified visual disturbance
CPT/HCPCS: 93880

== ENCOUNTER → 2025-02-08 | Outpatient (CLI) | payer MEDICARE, MEDICAID, SELFPAY ==
--- NOTE | 2025-02-08 09:59 | ECHOD_ITS ---
Reason For Study Reason For Study: PPM, CM History Procedure This was a 2D Doppler, Color Flow transthoracic echocardiogram. Myocardial strain analysis was performed in this exam to aid in the assessment of cardiac function. Exam performed in department. Left Ventricle Normal LV size. The global longitudinal strain = -10.8% (abnormal). The left ventricular ejection fraction is 50 %. There is mild global hypokinesis of the left ventricle. Apical wall motion abnormality may reflect pacemaker activation. Right Ventricle Normal RV size. ICD or pacer leads identified within the right ventricle. Normal systolic function. Aortic Valve Trisinus/trileaflet aortic valve. Mild focal aortic valve thickening. Pulmonic Valve The pulmonic valve is not well visualized. Great Vessels Normal aortic root. The pulmonary artery is normal size. Inferior vena cava collapse with respiration. Pericardium/Pleural No pericardial effusion. MMode/2D Measurements & Calculations LVIDd: 5.3 cm IVSd: 1.2 cm LVOT diam: 2.0 cm LVIDs: 3.6 cm LVPWd: 1.0 cm RVDd: 4.4 cm FS: 31.4 % LVOT area: 3.3 cm2 Ao root diam: 3.3 cm LAV(MOD-bp): 52.6 ml LVAd ap4: 39.9 cm2 LAV(MOD-bp) Indexed: 25.0 ml/m2 LVLd ap4: 8.4 cm LAV(MOD-sp2): 46.5 ml EDV(MOD-sp4): 155.7 ml LAV(MOD-sp4): 50.8 ml EDV(sp4-el): 160.7 ml LVAs ap4: 27.5 cm2 LVLs ap4: 8.1 cm ESV(MOD-sp4): 82.9 ml ESV(sp4-el): 79.4 ml EF(MOD-sp4): 46.8 % EF(sp4-el): 50.6 % SV(MOD-sp4): 72.8 ml SV(sp4-el): 81.3 ml LA A4 area: 18.8 cm2 SI(MOD-sp4): 34.6 ml/m2 LA dimension(2D): 3.7 cm TAPSE: 1.9 cm RA A4 area: 16.6 cm2 Time Measurements MV dec time: 0.24 sec Doppler Measurements & Calculations MV E max mahesh: 86.0 cm/sec Lat Peak E' Mahesh: 6.9 cm/sec Med Peak E' Mahesh: 7.2 cm/sec MV A max mahesh: 83.0 cm/sec E/E' lat: 12.5 E/E' med: 11.9 MV E/A: 1.0 MV V2 max: 94.1 cm/sec MV P1/2t max mahesh: 94.6 cm/sec Ao V2 max: 229.7 cm/sec MV max P.5 mmHg MV P1/2t: 80.1 msec Ao max P.2 mmHg MV V2 mean: 59.5 cm/sec MV dec slope: 346.1 cm/sec2 Ao V2 mean: 161.1 cm/sec MV mean P.6 mmHg Ao mean P.0 mmHg MV V2 VTI: 33.2 cm MVA(P1/2t): 2.7 cm2 Ao V2 VTI: 51.3 cm MVA(VTI): 2.6 cm2 AV (velocity ratio): 0.51 ALFREDITO(I,D): 1.7 cm2 ALFREDITO(V,D): 1.7 cm2 LV V1 max: 117.3 cm/sec SV(LVOT): 86.5 ml PA V2 max: 137.4 cm/sec LV V1 max P.5 mmHg LV V1 mean P.1 mmHg LV V1 mean: 82.4 cm/sec LV V1 VTI: 26.3 cm TR max mahesh: 205.4 cm/sec TR max P.9 mmHg ECHO/Echo Complete Interpretation Summary Normal LV size. The left ventricular ejection fraction is 50 %. The global longitudinal strain = -10.8% (abnormal). Ordering Physician: Karl Keller Referring Physician: Karl Keller Performed By: Iglesia Francis RCS
--- NOTE | 2025-02-08 09:59 | CDU_ITS ---
Reason For Study Reason For Study: Dizziness, TCAR Rt. Velocities/BP Lt. Velocities/BP Prox CCA 78.7/17.3 cm/sec. Prox CCA 91.2/27.4 cm/sec. Mid CCA 81.7/28.9 cm/sec. Mid CCA 74.0/24.9 cm/sec. Dist CCA, Pre Stent, 78.4/22.3 cm/sec. Dist CCA 64./21.2 cm/sec. Bulb, Prox Stent, 70.4/17.6 cm/sec. Prox ICA 67.9/16.3 cm/sec. Prox ICA, Mid Stent, 110.1/29.8 cm/sec. Mid ICA 88.8/27.4 cm/sec. Mid ICA, Dist Stent, 87.7/25.7 cm/sec. Dist ICA 88.8/28.6 cm/sec. Dist ICA, DIst to Stent, 80.9/29.8 cm/sec. Lt. ICA/CCA = 1.2. Rt. ICA/CCA = 1.1. Prox ECA 97.4/22.5 cm/sec. Prox ECA 179.6/24.1 cm/sec. Lt. Vert. 54.4/18.8 cm/sec. Rt. Vert. 53.2/15.1 cm/sec. Right Extracranial There is homogeneous, smooth atherosclerotic plaque noted in the right common carotid artery. There is intimal thickening but no significant atherosclerotic plaque noted in the right internal carotid artery. Stent noted in the Rt ICA. There is intimal thickening but no significant atherosclerotic plaque noted in the right external carotid artery. Antegrade flow is noted in the right vertebral artery. Left Extracranial There is intimal thickening but no significant atherosclerotic plaque noted in the left common carotid artery. There is heterogeneous, irregular atherosclerotic plaque noted in the left internal carotid artery. There is intimal thickening but no significant atherosclerotic plaque noted in the left external carotid artery. Antegrade flow is noted in the left vertebral artery. Procedure Carotid Duplex 10993. This is a Carotid Duplex examination using B-mode, color flow and specral Doppler. Exam performed in department. VL/Carotid Duplex Ultrasound Interpretation Summary Mild (<50%) stenosis right extracranial internal carotid. Mild (<50%) stenosis left extracranial internal carotid. Patent and antegrade vertebrals bilaterally. Ordering Physician: Karl Keller Referring Physician: Karl Keller Performed By: Lana Maria RVT
== END | disposition home or self-care (01) ==
LOC: CVS 09:55
PROVIDERS: PCP Family Medicine; Referring Provider Nurse Practitioner Family; Visit Provider Nurse Practitioner Family
DX: I65.23 Occlusion and stenosis of bilateral carotid arteries (principal); I42.8 Other cardiomyopathies; Z95.0 Presence of cardiac pacemaker; I10 Essential (primary) hypertension; E78.5 Hyperlipidemia, unspecified; F17.200 Nicotine dependence, unspecified, uncomplicated
CPT/HCPCS: 93306; 93880

== ENCOUNTER → 2025-02-27 | Outpatient (CLI) | payer MEDICARE, MEDICAID, SELFPAY ==
[2025-02-27 18:02] LABS: Hematocrit 44.4 % (40-54); Hemoglobin 15.1 g/dL (13.0-16.5); Immature Granulocytes Count 0.040 X10^3/uL (0.0-0.0); Mean Corp Hgb Conc 34.0 g/dL (32-36); Mean Corpuscular Volume 87.7 fL (80-94); Mean Platelet Vol. 9.8 fl (6.2-12.0); NRBC Flagged by Analyzer 0 % (0-5); Platelet Count 274 K/mm3 (150-450); RBC Distribution Width CV 13.2 % (11.6-14.6); RBC Distribution Width SD 42.6 fl (35.1-43.9); Red Blood Count 5.06 M/mm3 (4.6-6.2); White Blood Count 9.5 K/mm3 (4.4-11.0)
[2025-02-27 18:27] LABS: AST(SGOT) 21 U/L (<=37); Alanine Aminotransfer ALT/SGPT 14 U/L (<=46); Albumin, Serum 4.0 g/dL (3.4-4.8); Alkaline Phosphatase 85 U/L (40-129); Anion Gap 10 (5-15); BUN 11 mg/dL (4-19); BUN/Creat Ratio 12.4 RATIO (10-20); CRP 18.60 mg/L (0.0-3.0); Calcium,Total 9.4 mg/dL (7.6-11.0); Carbon Dioxide 24.7 mmol/L (21.0-32.0); Chloride 106 mmol/L (98-108); Globulin 3.3 g/dL (2.2-4.2); Glucose 148 mg/dL (70-99); Magnesium 2.1 mg/dL (1.5-2.2); Potassium 4.1 mmol/L (3.3-5.1); Vitamin B12 420 pg/mL (180-914)
== END | disposition home or self-care (01) ==
LOC: MTLAB 14:17
PROVIDERS: PCP Family Medicine
DX: H53.8 Other visual disturbances (principal); I63.40 Cerebral infarction due to embolism of unspecified cerebral artery; G45.9 Transient cerebral ischemic attack, unspecified
CPT/HCPCS: 36415; 80053; 82607; 83735; 84443; 85025; 85652; 86140

== ENCOUNTER → 2025-03-10 | Outpatient (CLI) | payer MEDICARE, MEDICAID, SELFPAY ==
--- NOTE | 2025-03-10 14:32 | MRI_ITS ---
PROCEDURE: MRA HEAD ONLY WITHOUT CONTRAST 03/10/2025 REASON FOR EXAM: TRANSIENT VISUAL CHANGES COMPARISON: 15-Nov-2018 TECHNIQUE: Procedure Code: [id number] Modality: MR Procedure: MRA HEAD ONLY WITHOUT CONTRAST Multiplanar multisequential imaging was performed without IV contrast administration. FINDINGS: Patent MRA flow signals of the petrous, cavernous and supraclinoid segments of the internal carotid arteries showing intimal irregularities with mild to moderately stenotic plaques of their cavernous segments. No severe stenotic lesions or aneurysmal dilatation. Patent MRA signal of the anterior and middle cerebral arteries with no severe stenotic lesions or aneurysmal dilatation. Patent MRA signal of the V4 segments of the vertebral arteries and basilar artery showing mild intimal irregularities with no severe stenotic lesions or aneurysmal dilatation. Patent posterior cerebral arteries. No severe stenotic lesions or aneurysmal dilatation. MRI/MRA Head ONLY without Contrast IMPRESSION: Patent MRA signal of the intracranial vessels constituting ([place]) w ith multifocal stenotic plaques of the cavernous segments of the internal carotid arteries. No tight stenotic lesions or aneurys mal dilatation. Stable study findings Reading Location[facility] [id number]
--- NOTE | 2025-03-10 14:32 | MRI_ITS ---
PROCEDURE: BRAIN W/WO CONTRAST 03/10/2025 REASON FOR EXAM: TRANSIENT VISUAL CHANGES TECHNIQUE: Procedure Code: [id number] Modality: MR Procedure: BRAIN W/WO CONTRAST Multiplanar and multisequence images were obtained. CONTRAST: Clariscan VOLUME: 22 mL COMPARISON: none FINDINGS: No acute or hyperacute infarcts. No intracerebral or extra-axial acute hemorrhage. No obvious enhancing masses. Bilateral cerebral periventricular and subcortical foci and patches of high T2/FLAIR WI signal. Normal MRI signal of the cerebellar hemispheres and brain stem. Relatively prominent ventricular system, cortical sulci and extra-axial CSF spaces. No shift of midline structures. Normal MRI appearance of the petrous temporal bones cerebellopontine angles with no definite masses. Normal MRI appearance of orbital structures, both globes, optic nerves, optic chiasm, optic tracts and optic radiations. Scanned paranasal sinuses are unremarkable. MRI/Brain W/WO Contrast IMPRESSION: No acute infarcts. No intracerebral or extra-axial hematomas. No enhancing mass es. Bilateral cerebral microvascular ischemic changes with mild brain involutional changes. [facility]
--- NOTE | 2025-03-10 14:32 | MRI_ITS ---
PROCEDURE: MRA NECK WITHOUT CONTRAST 03/10/2025 REASON FOR EXAM: TRANSIENT VISUAL CHANGES TECHNIQUE: MRA NECK WITHOUT CONTRAST FINDINGS: Motion artifact limits evaluation. The bilateral common carotid arteries appear unremarkable. Faint visualization of the right carotid bulb and origin of the right ICA to its mid cervical segment. There is more robust visualization of the distal cervical segment of the right ICA. The cervical left ICA demonstrates mild luminal narrowing at its origin, but is otherwise unremarkable. The cervical segments of the bilateral vertebral arteries appear patent and unremarkable. MRI/MRA Neck without Contrast IMPRESSION: Faint visualization of the right carotid bulb and proximal cervical segment of the right ICA, suggesting high-grade stenosis. Mild luminal narrowing of the cervical left ICA at its origin. Consider further evaluation with a CT angiogram. Reading Location: [id number]
[2025-03-10 14:43] VITALS: BP 150/62; PULSE 61; RESP 18; O2SAT 95
[2025-03-10 14:53] VITALS: BP 145/75; PULSE 80; O2SAT 92
[2025-03-10 15:05] VITALS: BP 184/93; PULSE 80; O2SAT 94
[2025-03-10 15:20] VITALS: BP 182/101; PULSE 80; O2SAT 93
[2025-03-10 15:33] VITALS: BP 195/84; PULSE 83; O2SAT 91
[2025-03-10 15:45] VITALS: BP 173/84; PULSE 80; O2SAT 92
== END | disposition home or self-care (01) ==
PROVIDERS: PCP Family Medicine
DX: H53.8 Other visual disturbances (principal); I63.40 Cerebral infarction due to embolism of unspecified cerebral artery; G45.9 Transient cerebral ischemic attack, unspecified
CPT/HCPCS: 70544; 70547; 70553; A9575

== ENCOUNTER → 2025-03-27 | Outpatient (CLI) | payer MEDICARE, MEDICAID, SELFPAY | END | disposition home or self-care (01) | LOC: MTLAB 15:16 | PROVIDERS: PCP Family Medicine; Referring Provider Psychiatry & Neurology Neurology; Visit Provider Psychiatry & Neurology Neurology | DX: H53.2 Diplopia (principal) | CPT/HCPCS: 36415; 83519; 84238 ==